=== PATIENT | male | born 1935 | race Caucasian/White ===

== ENCOUNTER → 2021-01-16 | Outpatient (REF) | LOC: ZCOL.LAB 07:56 | DX: K57.20 Diverticulitis of large intestine with perforation and abscess without bleeding (principal); D70.9 Neutropenia, unspecified ==

== ENCOUNTER → 2021-01-17 | Outpatient (REF) | LOC: ZCOL.LAB 08:40 | DX: K57.20 Diverticulitis of large intestine with perforation and abscess without bleeding (principal); D70.9 Neutropenia, unspecified ==

== ENCOUNTER 2022-01-04 19:24 | Inpatient (IN) | payer MEDICARE, BC ==
[~2022-01-04] VITALS: Ht 172.7 cm; Wt 75.7 kg
[2022-01-04] VITALS (69 sets, daily range): BP systolic 74–103; BP diastolic 38–58; PULSE 93–107; TEMP 98.8; O2SAT 85–100
[2022-01-04 19:49] LABS: HEMATOCRIT 42.9 % (42.0-52.0); HEMOGLOBIN 14.1 g/dl (13.5-18.0); MEAN CELL VOLUME 100 fl (80.0-100.0); MEAN CORPUSCULAR HEMOGLOBIN 33 pg (27-31); MEAN CORPUSCULAR HGB CONC 33 g/dl (33.0-37.0); MEAN PLATELET VOLUME 10.6 fl (7.4-10.4); PLATELET COUNT 150 K/mm3 (130-400); RED BLOOD COUNT 4.29 M/mm3 (4.20-5.60); REDCELL DISTRIBUTION WIDTH-CV 16.2 % (11.5-14.5)
[2022-01-04 19:58] LABS: INR 1.3 (0.8-3.0); PROTHROMBIN TIME 15.3 SECONDS (9.7-12.8)
[2022-01-04 20:10] LABS: ANISOCYTOSIS 1+; BAND 40 % (0-10); LYMPHOCYTE 4 % (20.0-51.0); METAMYELOCYTE 1 % (0-0); NEUTROPHILS 52 % (42.0-75.2); PLATELET ESTIMATE NORMAL (NORMAL)
[2022-01-04 20:15] LABS: ALBUMIN 3.3 gm/dL (3.4-4.8); BILIRUBIN,TOTAL 1.6 mg/dL (0.2-1.2); CALCIUM 9.2 mg/dL (8.4-10.2); CREATININE, serum 4.04 mg/dL (0.72-1.25); POTASSIUM 5.2 mmol/L (3.5-4.5); TOTAL PROTEIN 6.4 gm/dL (6.2-8.1)
[2022-01-04 20:17] LABS: C-REACTIVE PROTEIN 32.27 mg/dL (0.00-0.50); TROPONIN-I 0.311 ng/mL (0.00-0.033)
[2022-01-05] VITALS (1403 sets, daily range): BP systolic 69–120; BP diastolic 48–75; PULSE 76–101; TEMP 98.1–99; O2SAT 75–100
[2022-01-05] MEDS ORDERED: CLEOCIN HCL300 MG PO (00:44)
[2022-01-05] MEDS ORDERED: BACTROBAN22 TOP (00:45)
[2022-01-05] MEDS ORDERED: FLOMAX 0.40.4 MG/CAP PO (00:45)
[2022-01-05] MEDS ORDERED: EFFEXOR XR37.5 MG/CA PO (00:45)
[2022-01-05] MEDS ORDERED: METHOTREXA2.5 MG/TAB PO (00:46)
[2022-01-05] MEDS ORDERED: PRAVACHOL 40MG40 MG PO (00:47)
[2022-01-05] MEDS ORDERED: PROSCAR 5MG5 MG PO (00:47)
--- NOTE | 2022-01-05 00:48 | NUR ---
patient's med list incomplete. patient's will bring in a copy of his list in the morning--the patient states that he knows there are several medications missing, but he is unsure what they are
--- NOTE | 2022-01-05 01:44 | NUR ---
LEVOPHED TITRATED OUTSIDE OF ORDERED PARAMETERS (TITRATED BY 0.03) PATIENT SENSITIVE TO CHANGES. WILI SANDY.
--- NOTE | 2022-01-05 01:50 | NUR ---
LEVO TITRATED TO 0.3MCG/KG/MIN, PROVIDER AWARE OF TITRATION OUTSIDE OF ORDERED PARAMETERS
[2022-01-05 05:20] LABS: HEMOGLOBIN 12.4 g/dl (13.5-18.0); MEAN CELL VOLUME 98 fl (80.0-100.0); MEAN CORPUSCULAR HEMOGLOBIN 33 pg (27-31); MEAN CORPUSCULAR HGB CONC 34 g/dl (33.0-37.0); MEAN PLATELET VOLUME 10.5 fl (7.4-10.4); PLATELET COUNT 140 K/mm3 (130-400); RED BLOOD COUNT 3.76 M/mm3 (4.20-5.60); REDCELL DISTRIBUTION WIDTH-CV 16.2 % (11.5-14.5)
[2022-01-05 05:38] LABS: CALCIUM 8.3 mg/dL (8.4-10.2); CREATININE, serum 2.98 mg/dL (0.72-1.25); MAGNESIUM 1.7 mg/dL (1.6-2.6); POTASSIUM 4.1 mmol/L (3.5-4.5)
[2022-01-05 05:51] LABS: BAND 34 % (0-10); LYMPHOCYTE 3 % (20.0-51.0); NEUTROPHILS 60 % (42.0-75.2)
[2022-01-05 05:52] LABS: ANISOCYTOSIS 1+; PLATELET ESTIMATE NORMAL (NORMAL)
--- NOTE | 2022-01-05 09:04 | NUR ---
REPORT RECEIVED FROM KAVITHA HERRERA; PATIENT CURRENTLY SLEEPING AND VITAL SIGNS ARE ALL WITHIN NORMAL LIMITS. LEVOPHED AND NS ARE BOTH RUNNING TO THE RIGHT IJ. PATIENT HAS A COLOSTOMY BAG THAT HE MANAGES HIMSELF.
--- NOTE | 2022-01-05 10:00 | NUR ---
Initial visit; Patient thanked sales and management trainee for looking in on him and offering God's blessings. Patient was receptive to having Audit Lead keep him in her prayers.
--- NOTE | 2022-01-05 10:28 | NUR ---
breast worker met with patient to complete intake. Patient reports that he lives at home with his Opal ([phone]). He reports that he is independent with his ADL's and utilizes a walker to assist with mobility. Patient has no home oxygen needs. PCP is and he utilizes [facility] in [place] for prescriptions. Patient states that he does have a DPOA-HC established listing his Opal as his first agent and his daughter Lupe as his secondary agent.
[2022-01-05] MEDS ORDERED: ZYLOPRIM 300MG300 MG PO (11:14)
[2022-01-05] MEDS ORDERED: DULCOLAX STOOL100 MG PO (11:17)
[2022-01-05] MEDS ORDERED: PREDNISONE 5MG5 MG PO (11:20)
[2022-01-05] MEDS ORDERED: ASPIRIN 81M81 MG/TA2 PO (11:22)
[2022-01-05] MEDS ORDERED: LUTEIN20 M1 PO (11:24)
[2022-01-05] MEDS ORDERED: GLUCOSAMINE/CHO1 CA5 PO (11:25)
[2022-01-05] MEDS ORDERED: CENTRUM1 TA1 PO (11:26)
--- NOTE | 2022-01-05 19:07 | NUR ---
PATIENT ADMITED TO ICU 01/04/22 [id number].
--- NOTE | 2022-01-05 20:34 | NUR ---
Assessment complete and charted. Patient resting in bed. Denies needs at this time. Call light reach.
[2022-01-06] VITALS (1244 sets, daily range): BP systolic 94–115; BP diastolic 49–65; PULSE 61–86; TEMP 97.7–98.3; O2SAT 69–100
[2022-01-06 05:50] LABS: HEMOGLOBIN 11.2 g/dl (13.5-18.0); MEAN CELL VOLUME 102 fl (80.0-100.0); MEAN CORPUSCULAR HEMOGLOBIN 33 pg (27-31); MEAN CORPUSCULAR HGB CONC 33 g/dl (33.0-37.0); MEAN PLATELET VOLUME 11.2 fl (7.4-10.4); PLATELET COUNT 92 K/mm3 (130-400); RED BLOOD COUNT 3.39 M/mm3 (4.20-5.60); REDCELL DISTRIBUTION WIDTH-CV 16.1 % (11.5-14.5)
[2022-01-06 06:02] LABS: HEMATOCRIT 34.5 % (42.0-52.0)
[2022-01-06 06:10] LABS: CALCIUM 8.5 mg/dL (8.4-10.2); CREATININE, serum 1.8 mg/dL (0.72-1.25); POTASSIUM 3.9 mmol/L (3.5-4.5)
[2022-01-06 06:28] LABS: ANISOCYTOSIS 1+; BAND 9 % (0-10); LYMPHOCYTE 2 % (20.0-51.0); NEUTROPHILS 85 % (42.0-75.2); PLATELET ESTIMATE NORMAL (NORMAL)
--- NOTE | 2022-01-06 07:00 | NUR ---
PT RESTING IN BED. VSS. PT ON SMALL DOSE LEVO. PT DENIES NEEDS AT THIS TIME. CALL LIGHT WITHIN REACH.
--- NOTE | 2022-01-06 07:17 | NUR ---
Report given to KAVITHA De La Paz
--- NOTE | 2022-01-06 11:42 | NUR ---
MELITON LANGE WITH NOTIFIED OF TROPONIN. OK TO NOT CALL ON CRITICAL TROP IF TRENDING DOWN.
--- NOTE | 2022-01-06 13:45 | NUR ---
Pt states he is seeing pictures on the caballero and ceilings that he knows are not there. Pt stated he had hallucinations when he was hospitalized in September of last year. on unit and notified. Orders received.
--- NOTE | 2022-01-06 19:55 | NUR ---
Assessment complete and charted. Patient alert and orientated. Denies needs a this time. Call light in reach.
--- NOTE | 2022-01-06 22:28 | NUR ---
Patient transferred to floor. Report given to KAVITHA Acosta
--- NOTE | 2022-01-06 22:51 | NUR ---
Patient arrived to medical floor from ICU. Denies having pain and discomfort. Alert and oriented x 4, but does state that he has been seeing things in the ceilings. Patient is aware that he is hallucinating. ICU reported he had been having this in ICU as well. High fall risk precautions are in place. TLC to right IJ. Peripheral INT to right and left ACs. Denies SOB and dyspnea at rest, but does report he gets SOB with exertion. LS CTA. On oxygen at 2 L/min via NC, reported he only wears it at night. HRR. DU said telemetry did not need to be continued on medical floor. BSAx4. Colostomy emptied, 275 mls output. Patient using bedside urinal, urine clear and yellow. Patient continues on IV fluids per orders, as well as ABX. Voices no questions, needs, or concerns at this time. In bed with call light within reach.
[2022-01-07] VITALS (7 sets, daily range): BP systolic 95–152; BP diastolic 47–71; PULSE 54–95; TEMP 97.5–98.3
--- NOTE | 2022-01-07 06:15 | NUR ---
Patient has denied pain and discomfort. Continues on IV fluids, ABX, and steroids per orders. Labs obtained through central line per protocol. Voices no questions, needs, or concerns at this time. In bed with call light within reach. Bed alarm on.
[2022-01-07 08:11] LABS: BASO % 0.3 % (0.0-2.0); GRAN # 5.4 K/mm3 (1.4-6.5); HEMOGLOBIN 10.1 g/dl (13.5-18.0); LYMPH # 0.2 K/mm3 (1.2-3.4); LYMPH % 3.1 % (20.0-51.0); MEAN CELL VOLUME 102 fl (80.0-100.0); MEAN CORPUSCULAR HEMOGLOBIN 33 pg (27-31); MEAN CORPUSCULAR HGB CONC 32 g/dl (33.0-37.0); MEAN PLATELET VOLUME 11.8 fl (7.4-10.4); MONO # 0.5 K/mm3 (0.1-0.6); MONO % 8.3 % (1.7-9.3); PLATELET COUNT 80 K/mm3 (130-400); REDCELL DISTRIBUTION WIDTH-CV 16.4 % (11.5-14.5)
[2022-01-07 08:15] LABS: HEMATOCRIT 31.6 % (42.0-52.0)
[2022-01-07 08:20] LABS: CALCIUM 8.5 mg/dL (8.4-10.2); CREATININE, serum 1.26 mg/dL (0.72-1.25); POTASSIUM 3.6 mmol/L (3.5-4.5)
--- NOTE | 2022-01-07 09:12 | NUR ---
Initial visit; Patient thanked Color Blender for looking in on him and offering God's blessings.
--- NOTE | 2022-01-07 15:24 | NUR ---
Airplane Captain attended clinical rounds with the team and patient may discharge home tomorrow. JE met with patient to review discharge plan. JE discussed Home Health services with patient who advised he was not interested and wants to just continue his home exercise plan. SW presented and reviewed IM form with patient who verbalized understanding and provided signature. SW verbalized understanding of patient rights, however kept referring to "little hairs" on the paper, which were not there. JE placed form in chart and provided copy to patient. JE contacted patient's , Opal to review discharge plan. Opal will talk with patient Home Health and follow up with JE. Opal also requested a call from Hospitalist as she had questions about patient's hallucenations. JE provided this request to DU Alberto.
[2022-01-07] MEDS ORDERED: ZESTRIL2.5 MG PO (16:22)
[2022-01-07] MEDS ORDERED: JARDIANCE10 PO (16:23)
[2022-01-07] MEDS ORDERED: PLAVIX 75MG TAB75 MG PO (16:24)
--- NOTE | 2022-01-07 19:20 | NUR ---
patient orient and alert with hallucination during the day, tolarated all his meds and diet, denies any complaints.
--- NOTE | 2022-01-07 22:30 | NUR ---
Patient assessed around 2100. Alert and oriented, continues to have hallucinations, but is aware of these "visions" not being real. Denies pain and discomfort. TLC to right IJ. Continues on IV Steroids per orders. Continues to report SOB and dyspnea with exertion. Put on oxygen at 2 L/min via NC. LS CTA in upper lobes, diminished in lower. HRR. BSA x 4. Colostomy emptied. No edema. Voices no questions, needs, or concerns at this time. In bed with call light within reach. Bed alarm on.
[2022-01-08 07:08] LABS: GRAN # 3.3 K/mm3 (1.4-6.5); GRAN % 82.8 % (42.2-75.2); HEMOGLOBIN 10.3 g/dl (13.5-18.0); LYMPH # 0.2 K/mm3 (1.2-3.4); LYMPH % 4.8 % (20.0-51.0); MEAN CELL VOLUME 105 fl (80.0-100.0); MEAN CORPUSCULAR HEMOGLOBIN 33 pg (27-31); MEAN CORPUSCULAR HGB CONC 31 g/dl (33.0-37.0); MEAN PLATELET VOLUME 12.1 fl (7.4-10.4); MONO # 0.4 K/mm3 (0.1-0.6); MONO % 11.1 % (1.7-9.3); PLATELET COUNT 88 K/mm3 (130-400); RED BLOOD COUNT 3.14 M/mm3 (4.20-5.60); REDCELL DISTRIBUTION WIDTH-CV 16.6 % (11.5-14.5)
[2022-01-08 07:19] LABS: CREATININE, serum 1.36 mg/dL (0.72-1.25); POTASSIUM 3.8 mmol/L (3.5-4.5)
[2022-01-08 07:29] VITALS: BP 113/60; PULSE 48; TEMP 97.9
[2022-01-08 11:49] VITALS: BP 119/61; BP 173/53; PULSE 52; PULSE 72; TEMP 97.5; TEMP 98.3
[2022-01-08 11:50] LABS: CREATININE, serum 1.3 mg/dL (0.72-1.25); POTASSIUM 3.7 mmol/L (3.5-4.5)
--- NOTE | 2022-01-08 12:32 | NUR ---
Shift assessment preformed. Scheduled medications given. Dyspnea upon exertion noted. Patient's IJ flushes with good blood return. +3 edema noted in patient's left arm. Wedding ring noted to be constricting blood flow to rest of hand. Wedding band and removed and placed in patient's belongings. Provider aware. Patient continues to have hallucinations, but is aware of them not being real. Patient denies any further pain, discomfort, SOA, or further needs at this time. Call light in reach. Fall precautions in place.
--- NOTE | 2022-01-08 15:28 | NUR ---
Hypertrichologist contacted patient's , Opal to follow up on Home Health. Opal would like HH services set up so JE reviewed Medicare.gov list of HH agencies that serve [place] and Opal selected [facility] . JE contacted [facility] and faxed referral.
[2022-01-08 15:46] VITALS: BP 123/61; PULSE 49; TEMP 98.1
[2022-01-08 18:17] LABS: CALCIUM 8.9 mg/dL (8.4-10.2); CREATININE, serum 1.26 mg/dL (0.72-1.25); POTASSIUM 3.7 mmol/L (3.5-4.5)
--- NOTE | 2022-01-08 18:58 | NUR ---
Patient has had an ok day. VSS. Patient A&O. D5W gtt started per orders. Patient currently requiring 2L of O2 via nasal cannula. Patient denies any pain, discomfort, SOA, or further needs at this time. Call light in reach. Fall precautions in place.
--- NOTE | 2022-01-08 20:30 | NUR ---
Initial shift assessment done- VSS, left arm red/edema- improving-- pt states much better, Hopes to go home tomorrow, IV fluids of D5w at 30cc/hr, checking sodium levels every 4 hrs during the night- alert/oriented
[2022-01-08 20:40] VITALS: BP 119/53; PULSE 52; TEMP 97.4
[2022-01-08 21:38] LABS: CALCIUM 9.2 mg/dL (8.4-10.2); CREATININE, serum 1.28 mg/dL (0.72-1.25); POTASSIUM 3.6 mmol/L (3.5-4.5)
--- NOTE | 2022-01-08 22:45 | NUR ---
Fernanda notified of Sodium level of 148, D5W IV fluids increased to 50cc/hr at this time
[2022-01-09] VITALS (7 sets, daily range): BP systolic 111–146; BP diastolic 48–66; PULSE 51–66; TEMP 97.4–98.5
[2022-01-09 01:57] LABS: CREATININE, serum 1.29 mg/dL (0.72-1.25); POTASSIUM 3.7 mmol/L (3.5-4.5)
--- NOTE | 2022-01-09 05:19 | NUR ---
Quiet night- Most recent sodium level 146- [facility] DIXON aware- D5W remains at 50cc/hr, o2 sats 96% on 2L/nc, slept fair
[2022-01-09 07:27] LABS: HEMOGLOBIN 10.4 g/dl (13.5-18.0); MEAN CELL VOLUME 101 fl (80.0-100.0); MEAN CORPUSCULAR HEMOGLOBIN 32 pg (27-31); MEAN CORPUSCULAR HGB CONC 32 g/dl (33.0-37.0); MEAN PLATELET VOLUME 11.2 fl (7.4-10.4); PLATELET COUNT 113 K/mm3 (130-400); RED BLOOD COUNT 3.22 M/mm3 (4.20-5.60); REDCELL DISTRIBUTION WIDTH-CV 16.4 % (11.5-14.5)
[2022-01-09 07:35] LABS: HEMATOCRIT 32.5 % (42.0-52.0)
[2022-01-09 07:57] LABS: CALCIUM 9.1 mg/dL (8.4-10.2); CREATININE, serum 1.26 mg/dL (0.72-1.25); POTASSIUM 3.5 mmol/L (3.5-4.5)
[2022-01-09 08:49] LABS: BAND 3 % (0-10); EOSINOPHIL 4 % (0-4); LYMPHOCYTE 17 % (20.0-51.0); NEUTROPHILS 68 % (42.0-75.2); PLATELET ESTIMATE DECREASED (NORMAL)
[2022-01-09] MEDS ORDERED: LIPITOR 40MG TA40 MG PO (09:31)
[2022-01-09] MEDS ORDERED: OXYGEN NASAL.CANN (10:22)
--- NOTE | 2022-01-09 15:23 | NUR ---
Insurance Sales Executive contacted patient's , Opal to discuss setting up home oxygen as patient may discharge today. Opal selected [facility] as DME provider. JE contacted [facility] and faxed referral with orders. Alexander at [facility] delivered portable tanks to patient's room. JE notified by Hospitalist that patient will not discharge today. JE left message for [facility] STATON with update.
[2022-01-09 17:11] LABS: PLEURAL FLUID RBC 2000 /mm3 (0-0); PLEURAL FLUID WBC 54 /mm3
[2022-01-09 17:23] LABS: PLEURAL FLUID APPEARANCE CLEAR; PLEURAL FLUID COLOR YELLOW
--- NOTE | 2022-01-09 22:45 | NUR ---
ALERT AND OX4. DENIES SOA, CHEST PAIN OR DIZZY. NO GENERAL PAIN. CELLULITS TO LEFT ARM, OUTLINED IMPROVING. SCAB TO LT HAND. VANCO AND IV FLUIDS. HEP VTE. POSSIBLE DC TOMORROW. THORA ON RT OF 600 OFF AND FEELING BETTER. POC DISCUSSED. CALL LIGHT WI REACH. COLOSTOMY W LITTLE BIT OF STOOL, INTACT. URINAL EMPTIED.
[2022-01-10 04:14] VITALS: BP 127/52; PULSE 66; TEMP 97.9
[2022-01-10 07:31] VITALS: BP 120/44; PULSE 59; TEMP 97.6
[2022-01-10 10:51] LABS: CALCIUM 9.4 mg/dL (8.4-10.2); CREATININE, serum 1.26 mg/dL (0.72-1.25); POTASSIUM 3.1 mmol/L (3.5-4.5)
--- NOTE | 2022-01-10 10:58 | NUR ---
PATEINTS LEFT ARM REDNESS AND BLISTERS INCREASED FROM YESTERDAY, DR GUPTA NOTIFIED AND CALL PLACED TO ID DOCTOR KEAGAN, NO ANSWER, VOICEMAIL WAS LEFT.
[2022-01-10 11:36] VITALS: BP 143/69; PULSE 73; TEMP 98.9
[2022-01-10 16:20] VITALS: BP 130/62; PULSE 81; TEMP 98.4
[2022-01-10 20:33] VITALS: BP 117/50; PULSE 81; TEMP 98.2
--- NOTE | 2022-01-10 22:43 | NUR ---
ALERT AND OX3. DENIES SOA, CHEST PAIN OR DIZZY; TRIPLE IJ TO RT NECK- DSG CHANGED TODAY. PM MEDS GIVEN. LT ARM CELLULTIS, OFFLOAD W PILLOW. BLISTERS IN TACT, WILL GET WOUND CULTURE WHEN OPENS. THORA TOMORROW. POC DISCUSSED. CALL LIGHT WI REACH.
[2022-01-11 00:15] VITALS: BP 117/55; PULSE 76; TEMP 98.5
[2022-01-11 04:13] VITALS: BP 104/52; PULSE 72; TEMP 98.1
--- NOTE | 2022-01-11 06:13 | NUR ---
NOTED PT TO HAVE RED SMALL RAISED SPOTS ON BACK THAT DIDNT NOTICE BEFORE. DENIES ITCHY. WILL PASS ONTO HAVE DOCTOR LOOK AT DURING ROUNDS THIS AM. PT ARM HAS BLISTER BUT NOT OPEN ON LT ARM.
[2022-01-11 07:08] LABS: ALBUMIN 2.3 gm/dL (3.4-4.8); CREATININE, serum 1.25 mg/dL (0.72-1.25); PHOSPHOROUS 3.9 mg/dL (2.3-4.7); POTASSIUM 3.4 mmol/L (3.5-4.5)
[2022-01-11 07:15] VITALS: BP 122/56; PULSE 71; TEMP 98.2
[2022-01-11 07:40] LABS: HEMATOCRIT 39.7 % (42.0-52.0); MEAN CELL VOLUME 100 fl (80.0-100.0); MEAN CORPUSCULAR HEMOGLOBIN 32 pg (27-31); MEAN CORPUSCULAR HGB CONC 32 g/dl (33.0-37.0); MEAN PLATELET VOLUME 11.6 fl (7.4-10.4); PLATELET COUNT 185 K/mm3 (130-400); RED BLOOD COUNT 3.97 M/mm3 (4.20-5.60); REDCELL DISTRIBUTION WIDTH-CV 15.9 % (11.5-14.5)
[2022-01-11 07:48] LABS: HEMOGLOBIN 12.8 g/dl (13.5-18.0)
[2022-01-11 08:30] LABS: BAND 1 % (0-10); EOSINOPHIL 3 % (0-4); LYMPHOCYTE 15 % (20.0-51.0); NEUTROPHILS 75 % (42.0-75.2)
[2022-01-11 08:31] LABS: ANISOCYTOSIS 1+; HYPOCHROMIA 1+; PLATELET ESTIMATE NORMAL (NORMAL)
[2022-01-11 11:32] VITALS: BP 107/64; PULSE 81; TEMP 98.4
[2022-01-11 19:23] LABS: BUDDING YEAST Present (NOT PRESENT); MUCOUS Present (NOT PRESENT); PH 9 (5-8); SQUAMOUS EPITHELIAL 0-2 /hpf (0-10); URINE APPEARANCE Clear (CLEAR/HAZY); URINE BACTERIA None Seen /hpf (NONE SEEN); URINE BILIRUBIN Negative (NEGATIVE); URINE BLOOD Negative (NEGATIVE); URINE COLOR Straw (YELLOW); URINE GLUCOSE 1+ (NEGATIVE); URINE KETONE Negative (NEGATIVE); URINE LEUKOCYTE ESTERASE Negative (NEGATIVE); URINE NITRATE Negative (NEGATIVE); URINE PROTEIN(semi-quant) Negative (NEGATIVE); URINE UROBILINOGEN Negative (NEGATIVE); URINE WBC 0-2 /hpf (0-2)
[2022-01-11 19:42] LABS: COLLECTION METHOD CLEAN CATCH
[2022-01-11 20:10] VITALS: BP 106/56; BP 112/48; PULSE 85; TEMP 99
[2022-01-12 00:20] VITALS: BP 98/51; PULSE 83; TEMP 98.4
[2022-01-12 04:06] VITALS: BP 107/46; PULSE 78; TEMP 98.1
[2022-01-12 07:14] VITALS: BP 117/54; PULSE 78; TEMP 98
[2022-01-12 07:23] LABS: HEMATOCRIT 39.9 % (42.0-52.0); HEMOGLOBIN 12.7 g/dl (13.5-18.0); MEAN CELL VOLUME 101 fl (80.0-100.0); MEAN CORPUSCULAR HEMOGLOBIN 32 pg (27-31); MEAN CORPUSCULAR HGB CONC 32 g/dl (33.0-37.0); MEAN PLATELET VOLUME 11.8 fl (7.4-10.4); PLATELET COUNT 217 K/mm3 (130-400); RED BLOOD COUNT 3.97 M/mm3 (4.20-5.60); REDCELL DISTRIBUTION WIDTH-CV 15.9 % (11.5-14.5)
[2022-01-12 07:43] LABS: ALBUMIN 2.4 gm/dL (3.4-4.8); CALCIUM 9.2 mg/dL (8.4-10.2); CREATININE, serum 1.31 mg/dL (0.72-1.25); MAGNESIUM 2.2 mg/dL (1.6-2.6); PHOSPHOROUS 3.7 mg/dL (2.3-4.7); POTASSIUM 3.9 mmol/L (3.5-4.5)
[2022-01-12 09:04] LABS: BAND 12 % (0-10); EOSINOPHIL 3 % (0-4); LYMPHOCYTE 11 % (20.0-51.0); METAMYELOCYTE 1 % (0-0); NEUTROPHILS 66 % (42.0-75.2); PLATELET ESTIMATE NORMAL (NORMAL)
--- NOTE | 2022-01-12 09:48 | NUR ---
Patient prescribed hazardous medication: methotrexate, which requires precautions when handling urine and feces for 3 days after last administration. Last noted dose was 6/10 per med rec so precautions have lapsed but notified care team that if reactivated, patient will need to be under precautions again.
[2022-01-12] MEDS ORDERED: PREDNISONE20 MG PO (09:52)
[2022-01-12 11:15] VITALS: BP 109/50; PULSE 76; TEMP 97.9
[2022-01-12] MEDS ORDERED: DOXYCYCLINE HY100 MG PO (14:27)
[2022-01-12] MEDS ORDERED: ZOVIRAX400 MG PO (14:39)
[2022-01-12] MEDS ORDERED: PREDNISONE 5MG5 MG PO (14:42)
--- NOTE | 2022-01-12 14:49 | NUR ---
Patient to discharge home today with [facility]. JE collaborated with RT who completed another exercise oximetry and patient no longer requires home oxygen. SW updated [facility] and they will come pickers material handlers patient's equipment. JE contacted [facility] and faxed discharge orders. JE attempted to contact patient's , Opal and left a message. Discharge Plan: Home with [facility]
[2022-01-12 18:40] LABS: HEPATITIS C VIRUS ANTIBODY Negative (Negative); HIV 1 and 2 ANTIBODY SCRN-SO Negative (Negative)
== END 2022-01-12 15:30 | disposition home health service (06) | DRG 871 ==
LOC: COL.ER 19:24 → ICU 22:25 → MEDICAL 01-06 22:22
PROVIDERS: Emergency Medicine; Internal Medicine; Physician Assistant; Student in an Organized Health Care Education/Training Program; ADMIT Internal Medicine
PROC: 02HV33Z Insertion of Infusion Device into Superior Vena Cava, Percutaneous Approach (ICD-10-PCS; 2022-01-04)
PROC: 0W993ZX Drainage of Right Pleural Cavity, Percutaneous Approach, Diagnostic (ICD-10-PCS; principal; 2022-01-09)
DX: A41.9 Sepsis, unspecified organism (principal); J96.01 Acute respiratory failure with hypoxia; R65.21 Severe sepsis with septic shock; N17.9 Acute kidney failure, unspecified; D84.9 Immunodeficiency, unspecified; E87.0 Hyperosmolality and hypernatremia; I24.8 Other forms of acute ischemic heart disease; L03.114 Cellulitis of left upper limb; C95.90 Leukemia, unspecified not having achieved remission; E87.1 Hypo-osmolality and hyponatremia; I82.612 Acute embolism and thrombosis of superficial veins of left upper extremity; J91.8 Pleural effusion in other conditions classified elsewhere; B37.49 Other urogenital candidiasis; I50.30 Unspecified diastolic (congestive) heart failure; I95.9 Hypotension, unspecified; E78.5 Hyperlipidemia, unspecified; N40.0 Benign prostatic hyperplasia without lower urinary tract symptoms; F32.A Depression, unspecified; E86.0 Dehydration; N28.1 Cyst of kidney, acquired; D63.0 Anemia in neoplastic disease; Z20.822 Contact with and (suspected) exposure to COVID-19; I11.0 Hypertensive heart disease with heart failure; D69.6 Thrombocytopenia, unspecified; L27.0 Generalized skin eruption due to drugs and medicaments taken internally; E87.6 Hypokalemia; B00.1 Herpesviral vesicular dermatitis; Z87.442 Personal history of urinary calculi; Z79.82 Long term (current) use of aspirin
CPT/HCPCS: 99223-AI; 99232-AI; 99233-AI; 99239; A9270; C9113; J0696; J1644; J1720; J1815; J1940; J2185; J2405; J2543; J3370; J7030; J7040; J7050; J7060; J7070; J7120; Q9967

== ENCOUNTER 2022-06-06 10:50 | Inpatient (IN) | payer MEDICARE, BC ==
[~2022-06-06] VITALS: Ht 172.7 cm; Wt 81.1 kg
[~2022-06-06 10:50] MED LIST: ASPIRIN 81M81 MG/TA2 PO; BACTROBAN22 TOP; CENTRUM1 TA1 PO; CLEOCIN HCL300 MG PO; DOXYCYCLINE HY100 MG PO; DULCOLAX STOOL100 MG PO; EFFEXOR XR37.5 MG/CA PO; FLOMAX 0.40.4 MG/CAP PO; GLUCOSAMINE/CHO1 CA5 PO; JARDIANCE10 PO; LIPITOR 40MG TA40 MG PO; LUTEIN20 M1 PO; METHOTREXA2.5 MG/TAB PO; METHOTREXATE SQ; NEURONTIN100 MG/CAP PO; OXYGEN NASAL.CANN; PLAVIX 75MG TAB75 MG PO; PRAVACHOL 40MG40 MG PO; PREDNISONE 5MG5 MG PO; PREDNISONE20 MG PO; PROSCAR 5MG5 MG PO; VALTREX1 GM PO; ZESTRIL2.5 MG PO; ZOVIRAX400 MG PO; ZYLOPRIM 300MG300 MG PO
[2022-06-06 12:08] LABS: BASO % 0.5 % (0.0-2.0); EOS % 0.9 % (0.0-4.0); GRAN # 1.9 K/mm3 (1.4-6.5); GRAN % 87.6 % (42.2-75.2); HEMOGLOBIN 11.1 g/dl (13.5-18.0); LYMPH # 0.1 K/mm3 (1.2-3.4); LYMPH % 4.1 % (20.0-51.0); MEAN CELL VOLUME 100 fl (80.0-100.0); MEAN CORPUSCULAR HEMOGLOBIN 33 pg (27-31); MEAN CORPUSCULAR HGB CONC 33 g/dl (33.0-37.0); MONO # 0.1 K/mm3 (0.1-0.6); MONO % 5.5 % (1.7-9.3); PLATELET COUNT 74 K/mm3 (130-400); RED BLOOD COUNT 3.34 M/mm3 (4.20-5.60); REDCELL DISTRIBUTION WIDTH-CV 16.4 % (11.5-14.5)
[2022-06-06 12:10] LABS: HEMATOCRIT 33.4 % (42.0-52.0)
[2022-06-06 12:22] LABS: ALBUMIN 2.6 gm/dL (3.4-4.8); BILIRUBIN,TOTAL 0.9 mg/dL (0.2-1.2); CALCIUM 8.1 mg/dL (8.4-10.2); CREATININE, serum 0.99 mg/dL (0.72-1.25); POTASSIUM 3.7 mmol/L (3.5-4.5); TOTAL PROTEIN 5.3 gm/dL (6.2-8.1)
[2022-06-06 12:31] LABS: TROPONIN-I 0.037 ng/mL (0.00-0.033)
--- NOTE | 2022-06-06 14:09 | NUR ---
REPORT RCVD FROM KAVITHA MORENO IN ER. SHE STATES THE PATIENT DOES NOT HAVE AN IV, WILL ATTEMPT TO START ON ARRIVAL. THE PATIENT WILL BE ADMITTED WITH TELEMETRY, AND AN ORTHO CONSULT.
[2022-06-06 14:43] VITALS: BP 150/66; PULSE 74; TEMP 98.4
[2022-06-06] MEDS ORDERED: CEPHALEXIN500 M1 PO (15:11)
--- NOTE | 2022-06-06 15:30 | NUR ---
THE PATIENT ARRIVED FROM ER. THERE IS A SPLINT ON THE LEFT LEG FROM HIS FALL AT HOME. PER THE PATIENT'S FAMILY THE PATIENT DOES NOT RECALL THE EVENTS OF THE FALL. HE DID HIT HIS HEAD AND THERE IS A REDDENED SPOT ON THE LEFT OCCIPITAL OF THE PATIENTS HEAD. THE PATIENT RECENTLY HAD A PACEMAKER PLACED BY DR. CARDENAS ON WEDNESDAY. THE SITE DOES HAVE A HEMATOMA, ICE HAS BEEN PLACED ON THE SITE. DR. JAUREGUI IS AT BEDSIDE TO ASSESS. PACER INTERROGATION COMPLETED IN ED PER REPORT FROM KAVITHA MORENO. ORTHO CONSULT CALLED, DR. CHERY IS AWARE AND WILL SEE HIM IN THE MORNING. THE PATIENT HAS HIS AND DAUGHTER AT BEDSIDE. THEY STATED THAT HIS MEDICATIONS ARE EXACTLY WHAT THEY WERE WHEN HE LEFT FROM THE ICU. NO OTHER CONCERNS AT THIS TIME.
[2022-06-06 15:40] VITALS: BP 148/78; PULSE 77; TEMP 97.9
--- NOTE | 2022-06-06 15:40 | NUR ---
COLOSTOMY NOTED. NO CONCERNS WITH THAT, THE PATIENT STATES HE MANAGES IT HIMSELF.
--- NOTE | 2022-06-06 17:30 | NUR ---
ORTHO AT BEDSIDE. DR. CHERY STATES THAT IT APPEARS THERE COULD BE A POTENTIAL FRACTURE HIGHER UP AND WANTED TO ORDER A TIB/FIB XRAY. ORDER PLACED, AND SHOULD BE DONE TONIGHT. THE PATIENT IS VERY DROWSY AND IS SLEEPING AT THIS TIME.
--- NOTE | 2022-06-06 18:35 | NUR ---
PT SLEEPING AT THIS TIME. REFUSING TO EAT DINNER. WILL LEAVE IN HIS ROOM IN THE EVENT THE PATIENT WOULD LIKE IT. THE TIB/FIB XRAY HAS BEEN ORDERED AND FAMILY HAS BEEN NOTIFIED OF THE UPDATE.
[2022-06-06 20:43] VITALS: BP 123/48; PULSE 93; TEMP 99.2
[2022-06-07 00:11] VITALS: BP 108/49; PULSE 83; TEMP 97.6
[2022-06-07 04:28] VITALS: BP 120/78; PULSE 89; TEMP 97.4
[2022-06-07 06:42] LABS: MEAN CELL VOLUME 97 fl (80.0-100.0); MEAN CORPUSCULAR HGB CONC 33 g/dl (33.0-37.0); MEAN PLATELET VOLUME 11.4 fl (7.4-10.4); PLATELET COUNT 76 K/mm3 (130-400); RED BLOOD COUNT 2.98 M/mm3 (4.20-5.60); REDCELL DISTRIBUTION WIDTH-CV 16.1 % (11.5-14.5)
[2022-06-07 06:43] LABS: HEMOGLOBIN 9.6 g/dl (13.5-18.0); MEAN CORPUSCULAR HEMOGLOBIN 32 pg (27-31)
[2022-06-07 07:02] LABS: ALBUMIN 2.3 gm/dL (3.4-4.8); CALCIUM 7.7 mg/dL (8.4-10.2); CREATININE, serum 0.85 mg/dL (0.72-1.25); MAGNESIUM 1.7 mg/dL (1.6-2.6); PHOSPHOROUS 1.9 mg/dL (2.3-4.7); POTASSIUM 3.3 mmol/L (3.5-4.5)
--- NOTE | 2022-06-07 07:30 | NUR ---
Patient sleeping, easily awakened with verbal command. A&Ox3. VSS. IV CDI, fluids infusing. Denies pain and discomfort. Wants to go back to sleep. Nursing staff repositioned the patient for comfort. LF leg elevated on pillow. Nurse ordered breakfast. No further needs expressed. Call light within reach. Bed alarm on
[2022-06-07 07:39] VITALS: BP 126/51; PULSE 87; TEMP 98.9
[2022-06-07 08:18] LABS: BAND 4 % (0-10); LYMPHOCYTE 10 % (20.0-51.0); NEUTROPHILS 74 % (42.0-75.2)
[2022-06-07 08:19] LABS: ANISOCYTOSIS 1+; OVALOCYTES 1+; PLATELET ESTIMATE DECREASED (NORMAL)
[2022-06-07 11:39] VITALS: BP 110/45; PULSE 80; TEMP 97.9
--- NOTE | 2022-06-07 11:47 | NUR ---
Database Administration Associate rounds: Patient recently had a pacemaker inserted. When he went home from that procedure, he fell in the bathroom and broke his leg. His called for an ambulance. Now he will need surgery to correct his leg. The physical therapist arrived during visit, but left to allow Patient his radio time sales supervisor with Database Administration Associate. Surgery is scheduled Wednesday. Patient is in a lot of pain. Prayed for Patient. Database Administration Associate notified GUM SCORING MACHINE OPERATOR at end of visit so that PT could return.
[2022-06-07 15:11] VITALS: BP 115/50; PULSE 84; TEMP 97.5
--- NOTE | 2022-06-07 17:35 | NUR ---
Patient sitting up in bed watching TV and eating dinner. A&Ox4. VSS. IV CDI, fluids infusing. Denies pain and discomfort. Colostomy intact. Family at the bedside earlier in the shift. LF leg dressing CDI. Elevated on pillow. No further needs expressed. Call light within reach
[2022-06-07 19:35] VITALS: BP 132/57; PULSE 74; TEMP 98.4
[2022-06-08] VITALS (7 sets, daily range): BP systolic 107–144; BP diastolic 39–65; PULSE 72–84; TEMP 98–99.1
[2022-06-08 06:43] LABS: MEAN CELL VOLUME 99 fl (80.0-100.0); MEAN CORPUSCULAR HGB CONC 33 g/dl (33.0-37.0); MEAN PLATELET VOLUME 11.5 fl (7.4-10.4); PLATELET COUNT 78 K/mm3 (130-400); RED BLOOD COUNT 2.96 M/mm3 (4.20-5.60); REDCELL DISTRIBUTION WIDTH-CV 16.4 % (11.5-14.5)
[2022-06-08 06:45] LABS: HEMATOCRIT 29.4 % (42.0-52.0); HEMOGLOBIN 9.6 g/dl (13.5-18.0); MEAN CORPUSCULAR HEMOGLOBIN 32 pg (27-31)
[2022-06-08 07:10] LABS: ALBUMIN 2.2 gm/dL (3.4-4.8); CALCIUM 7.5 mg/dL (8.4-10.2); CREATININE, serum 0.84 mg/dL (0.72-1.25); MAGNESIUM 1.9 mg/dL (1.6-2.6); PHOSPHOROUS 1.5 mg/dL (2.3-4.7); POTASSIUM 4.2 mmol/L (3.5-4.5)
[2022-06-08 07:38] LABS: ANISOCYTOSIS 1+; BAND 6 % (0-10); LYMPHOCYTE 6 % (20.0-51.0); NEUTROPHILS 81 % (42.0-75.2)
[2022-06-08 07:41] LABS: PLATELET ESTIMATE DECREASED (NORMAL)
[2022-06-08 07:42] LABS: OVALOCYTES 1+
--- NOTE | 2022-06-08 11:00 | NUR ---
Morning medications administered per eMAR. Shift assessment completed. VSS. Telemetry on; paced. Dressing on L upper chest CDI. IV in L AC intact; no edema or redness. Colostomy in LUQ intact. Chandler wrap remains on LLE; elevated on pillow. No further requests at this time. Call light within reach.
--- NOTE | 2022-06-08 15:01 | NUR ---
SW met with the patient to discuss discharge plan. The patient lives in [place] with his , Opal. He states that his has Parkinson's and has a lot of falls, but that their daughter (Belgica Hinton, ph#[phone]) is taking care of here while he is here. He reports independence with ADLs and has canes and walkers available, if needed. The patient's PCP is Dr. Ren Mckee and he receives his medications from [facility] in . The patient does not have a DPOA-HC in EMR, but he states that he does have one completed and that it designates his . The patient has an ankle fracture and is to have surgery tomorrow. PT has already worked with the patient and recommend that he will likely need SNF before going home. SW discussed this with the patient and provided him with Medicare.gov's list of SNFs in the [facility]. The patient states that he has been to [facility] in the past. He would prefer [facility], [facility], or [facility] in [place]. JE contacted and faxed a referral to all three facilities. Awaiting screens. JE contacted the patient's daughter, Belgica, and reviewed the above with her. Belgica is in agreement to the plan. *Discharge plan: SNF. Referrals out*
[2022-06-09] VITALS (11 sets, daily range): BP systolic 115–140; BP diastolic 50–88; PULSE 60–74; TEMP 97.4–98.5
[2022-06-09 07:17] LABS: MEAN CELL VOLUME 97 fl (80.0-100.0); MEAN CORPUSCULAR HGB CONC 33 g/dl (33.0-37.0); MEAN PLATELET VOLUME 11.3 fl (7.4-10.4); PLATELET COUNT 77 K/mm3 (130-400); RED BLOOD COUNT 3.08 M/mm3 (4.20-5.60); REDCELL DISTRIBUTION WIDTH-CV 16.3 % (11.5-14.5)
[2022-06-09 07:19] LABS: HEMATOCRIT 29.9 % (42.0-52.0); HEMOGLOBIN 9.9 g/dl (13.5-18.0); MEAN CORPUSCULAR HEMOGLOBIN 32 pg (27-31)
[2022-06-09 07:23] LABS: ALBUMIN 2.2 gm/dL (3.4-4.8); CALCIUM 7.7 mg/dL (8.4-10.2); CREATININE, serum 0.8 mg/dL (0.72-1.25); MAGNESIUM 1.8 mg/dL (1.6-2.6); PHOSPHOROUS 2.8 mg/dL (2.3-4.7)
[2022-06-09 08:21] LABS: BAND 4 % (0-10); LYMPHOCYTE 15 % (20.0-51.0); NEUTROPHILS 73 % (42.0-75.2); PLATELET ESTIMATE DECREASED (NORMAL)
[2022-06-09 08:22] LABS: ANISOCYTOSIS 1+; OVALOCYTES 1+
--- NOTE | 2022-06-09 09:15 | NUR ---
Pt returned from procedure at this time. Post-op vitals in place. Pt is unable to move toes in LLE at this time. Pedal pulses noted and warm to touch. Chandler wrap and splint in place. LLE elevated on pillow.
--- NOTE | 2022-06-09 09:52 | NUR ---
Patient back up from procedure. Patient drowsy, but oriented. Right foot elevated on pillow, ice applied. Pedal pulse present. Dynamap connected for post op vitals. VSS.
--- NOTE | 2022-06-09 10:00 | NUR ---
Morning medications administered per eMAR. Shift assessment completed. Pt alert but drowsy. VSS. Pt currently on 3L per NC. Dressing in L upper chest CDI. Telemetry remains on; paced. IV in R AC intact; no edema or redness. Colostomy in LUQ intact. LLE in splint and kendra wrap with ice applied to lateral side of extremity. Strong pedal pulse noted on LLE, although pt is unable to move toes at this time; aware. LLE elevated on pillow. Post-op vitals remain in place. Incentive spirometer at bedside. No requests at this time. Call light within reach.
--- NOTE | 2022-06-09 14:25 | NUR ---
Dasha, at [facility], reports that they plan to talk to the patient's family. She states that with the patient's non-weight bearing restrictions, they would not be able to skill him for long. SW to fax updates to [facility], Katie Vallecillo, and Jarett Vallecillo.
--- NOTE | 2022-06-09 19:39 | NUR ---
Pt unable to move toes to LLE. Strong pedal pulse remains on LLE with splint and kendra wrap in place; extremity remains elevated on pillow. Pt denies having any pain at this time. Call light within reach.
[2022-06-10] VITALS (7 sets, daily range): BP systolic 88–148; BP diastolic 43–69; PULSE 59–66; TEMP 97.5–98.4
--- NOTE | 2022-06-10 03:07 | NUR ---
SHIFT NURSING ASSESSMENT COMPLETED. THE PATIENTS OSTOMY WAS EMPTIED AT THIS TIME. LEFT LOWER EXTREMITY ELEVATED ON PILLOWS AND ICE APPLIED DRESSING IS C/D/I. THE PATIENT IS STILL UNABLE TO WIGGLE HIS TOES D/T THE BLOCK THAT WAS USED DURING THE PROCEDURE. EDUCATION PROVIDED AND QUESTIONS AND CONCERNS ADDRESSED. THE PATIENT DENIED PAIN. LEFT LOWER EXTREMITY WARM TO THE TOUCH AND GOOD CAP REFILL NOTED. CALL LIGHT AND PERSONAL BELONGINS WITHIN REACH. WILL MONITOR. BED IN LOW POSITION.
[2022-06-10 07:05] LABS: ALBUMIN 2.3 gm/dL (3.4-4.8); BILIRUBIN,TOTAL 0.5 mg/dL (0.2-1.2); CALCIUM 8.1 mg/dL (8.4-10.2); CREATININE, serum 0.91 mg/dL (0.72-1.25); POTASSIUM 4.5 mmol/L (3.5-4.5); TOTAL PROTEIN 5.1 gm/dL (6.2-8.1)
[2022-06-10 07:30] LABS: MEAN CELL VOLUME 97 fl (80.0-100.0); MEAN CORPUSCULAR HGB CONC 33 g/dl (33.0-37.0); MEAN PLATELET VOLUME 11.6 fl (7.4-10.4); PLATELET COUNT 79 K/mm3 (130-400); RED BLOOD COUNT 3.01 M/mm3 (4.20-5.60)
--- NOTE | 2022-06-10 07:53 | NUR ---
Shift report received from night shift manager RN
[2022-06-10 09:24] LABS: HEMATOCRIT 29.1 % (42.0-52.0); HEMOGLOBIN 9.7 g/dl (13.5-18.0); MEAN CORPUSCULAR HEMOGLOBIN 32 pg (27-31)
--- NOTE | 2022-06-10 09:29 | NUR ---
Pt sitting up in recliner eating breakfast. LLE splint/dressing is CDI. BLE elevated on footrest. item processing clerk informed this nurse that lab called to report WBC of 1.5. Hospitalist team notified verbally. Pt. denies pain/discomfort at this time. IV site Rt. AC is not flushing well. Charge nurse notified to assist w/ finding alt. site for IV
[2022-06-10 09:37] LABS: ANISOCYTOSIS 1+; LYMPHOCYTE 6 % (20.0-51.0); NEUTROPHILS 82 % (42.0-75.2); PLATELET ESTIMATE DECREASED (NORMAL)
[2022-06-10 09:41] LABS: SCHISTOCYTES 1+
[2022-06-10] MEDS ORDERED: TESSALON P100 MG/CAP PO (10:01)
--- NOTE | 2022-06-10 10:33 | NUR ---
JE staffed with the PA. The clinical team is ready to discharge the patient today. JE updated Dasha at [facility]. Dasha reports that they are able to accept the patient, but that the earliest they would be able to take him is tomorrow, due to the patient recently having COVID. JE updated the PA. JE contacted the patient's daughter, Belgica, to update. Belgica is in agreement to the plan. JE faxed updates to [facility]. *Discharge plan: [facility]*
--- NOTE | 2022-06-10 16:36 | NUR ---
Pt sitting up in bed watching television. PRN pain medication was given approx 3 hours for hip pain that began after finishing PT. Pt. denies current pain/discomfort. Denies additional needs. Call light is in his reach
[2022-06-11] VITALS (8 sets, daily range): BP systolic 112–140; BP diastolic 47–114; PULSE 74–125; TEMP 97.7–102
[2022-06-11 07:35] LABS: BILIRUBIN,TOTAL 0.3 mg/dL (0.2-1.2); CALCIUM 6.9 mg/dL (8.4-10.2); CREATININE, serum 0.73 mg/dL (0.72-1.25); MAGNESIUM 1.6 mg/dL (1.6-2.6); POTASSIUM 3.6 mmol/L (3.5-4.5); TOTAL PROTEIN 4.3 gm/dL (6.2-8.1)
[2022-06-11 07:36] LABS: MEAN CELL VOLUME 99 fl (80.0-100.0); MEAN CORPUSCULAR HGB CONC 33 g/dl (33.0-37.0); MEAN PLATELET VOLUME 12.1 fl (7.4-10.4); PLATELET COUNT 81 K/mm3 (130-400); RED BLOOD COUNT 2.87 M/mm3 (4.20-5.60); REDCELL DISTRIBUTION WIDTH-CV 15.9 % (11.5-14.5)
[2022-06-11 07:59] LABS: HEMATOCRIT 28.5 % (42.0-52.0); HEMOGLOBIN 9.3 g/dl (13.5-18.0); MEAN CORPUSCULAR HEMOGLOBIN 32 pg (27-31)
[2022-06-11 08:06] LABS: ANISOCYTOSIS 1+; BAND 10 % (0-10); LYMPHOCYTE 9 % (20.0-51.0); NEUTROPHILS 76 % (42.0-75.2); OVALOCYTES 2+; PLATELET ESTIMATE DECREASED (NORMAL); POIKILOCYTOSIS 1+; SCHISTOCYTES 1+
--- NOTE | 2022-06-11 08:30 | NUR ---
PATIENT ASLEEP, RESTING IN BED WITH BED ALARM ON. PATIENT WOKE UP EASILY TO NAME. PATIENT WITH NO NEEDS OR COMPLAINTS AT THIS TIME. COLOSTOMY INTACT. IVF INFUSING. [facility]. WILL CONTINUE TO MONITOR.
--- NOTE | 2022-06-11 09:23 | NUR ---
The patient is to discharge today, 06/11, to [facility] for a skilled stay. Transportation was scheduled at 1100, via [facility]. JE informed the patient's RN and daughter (Belgica) of the transport time. JE met with the patient and presented and read the IM form outloud to him. The patient verbalized understanding and of agreement to discharge today. He gave SW verbal consent to sign the form on his behalf. JE provided him with a copy. No additional needs at this time.
--- NOTE | 2022-06-11 10:30 | NUR ---
PATIENTS IV AND TELE DISCONTINUED. PATIENT DRESSED, COLOSTOMY DRAINED.
--- NOTE | 2022-06-11 11:15 | NUR ---
REPORT GIVEN TO GAUDENCIO [facility] SANATORIUMAnnika SPIVEY. ALL QUESTIONS ANSWERED. INFORMED HER TRANSPORT IS HERE FOR PICKUP.
[2022-06-11] MEDS ORDERED: LOVENOX 4040 MG/0.4 SQ (11:49)
--- NOTE | 2022-06-11 12:24 | NUR ---
PATIENT ARRIVED FROM [facility]. BP STABLE, HEART RATE ELEVATED AND TEMP ELEVATED. PATIENT HAS NO COMPLAINTS, STATED HE FEELS FINE AND DOES NOT UNDERSTAND WHY HE WAS SENT BACK. MD MADE AWARE OF PATIENT ARRIVAL BACK TO HIS ROOM. IV AND TELE INITIATED. RADIOLOGY NOTIFIED OF CXR ORDER. MD AWARE. FLUID BOLUS INITATED, TYLENOL ADMIN (SEE EMAR). PATIENT RESTING IN BED AT THIS TIME WITH NO COMPLAINTS OR NEEDS. CALL LIGHT WITH IN REACH.
[2022-06-11 12:57] LABS: EOS % 0.4 % (0.0-4.0); GRAN # 4.1 K/mm3 (1.4-6.5); GRAN % 84.7 % (42.2-75.2); HEMOGLOBIN 11.2 g/dl (13.5-18.0); LYMPH # 0.3 K/mm3 (1.2-3.4); LYMPH % 6.7 % (20.0-51.0); MEAN CELL VOLUME 97 fl (80.0-100.0); MEAN CORPUSCULAR HEMOGLOBIN 32 pg (27-31); MEAN CORPUSCULAR HGB CONC 33 g/dl (33.0-37.0); MEAN PLATELET VOLUME 11.5 fl (7.4-10.4); MONO # 0.3 K/mm3 (0.1-0.6); MONO % 6.9 % (1.7-9.3); PLATELET COUNT 137 K/mm3 (130-400); RED BLOOD COUNT 3.48 M/mm3 (4.20-5.60); REDCELL DISTRIBUTION WIDTH-CV 16.1 % (11.5-14.5)
[2022-06-11 12:58] LABS: HEMATOCRIT 33.6 % (42.0-52.0)
[2022-06-11 13:07] LABS: COLLECTION METHOD CLEAN CATCH
--- NOTE | 2022-06-11 13:08 | NUR ---
PATIENTS DAUGHTER CALLED FOR UPDATE. INOFRMED HER OF PATIENT STATUS. ALL QUESTIONS ANSWERED, PATIENTS DAUGHTER SATISFIED AT THIS TIME.
[2022-06-11 13:13] LABS: ALBUMIN 2.9 gm/dL (3.4-4.8); BILIRUBIN,TOTAL 0.7 mg/dL (0.2-1.2); CALCIUM 8.8 mg/dL (8.4-10.2); CREATININE, serum 0.96 mg/dL (0.72-1.25); POTASSIUM 4.1 mmol/L (3.5-4.5); TOTAL PROTEIN 6.1 gm/dL (6.2-8.1)
[2022-06-11 13:28] LABS: URINE APPEARANCE Clear (CLEAR/HAZY); URINE BLOOD Negative (NEGATIVE); URINE COLOR Yellow (YELLOW); URINE GLUCOSE Negative (NEGATIVE); URINE KETONE Negative (NEGATIVE); URINE NITRATE Negative (NEGATIVE); URINE PROTEIN(semi-quant) TRACE (NEGATIVE); URINE UROBILINOGEN 0.2 E.U/dL (0.2-1.0)
[2022-06-11 13:30] LABS: SQUAMOUS EPITHELIAL None Seen /hpf (0-10); URINE BACTERIA None Seen /hpf (NONE SEEN); URINE RBC 0-2 /hpf (0-2)
--- NOTE | 2022-06-11 13:45 | NUR ---
PATIENT LUNG SOUNDS SHOW NO SIGN OF FLUID OVERLOAD. PATIENT ALERT AND ORIENTED. NO NEEDS OR COMPLAINTS AT THIS TIME. CALL LIGHT WITHIN REACH. WILL CONT TO MONITOR.
--- NOTE | 2022-06-11 14:35 | NUR ---
Dasha, at [facility], notified JE that upon arrival to [facility], the patient had a temp of 102.7 and they were concerend for his blood pressure. His blood pressure was 90/67. [facility] feels like he needs to be sent back out to be re-evaluated. JE notified the PA. Field Crop Farmworker was notified. The patient's discharge was canceled and the patient returned back to the hospital to be re-evaluated. JE updated the patient's Belgica reddy.
--- NOTE | 2022-06-11 16:45 | NUR ---
PORFIRIO FROM [facility] [employer] CALLED, ASKED PATIENTS SYMPTOMS. SHE STATED BECAUSE PATIENT HAS LEUKEMIA, AND WAS RECENTLY POSITIVE FOR COVID WELL STILL IN A 3 MONTH WINDOW, NO CONTACT/DROP PRECAUTIONS ARE NEEDED. HOUSE SUP AWARE.
--- NOTE | 2022-06-11 19:12 | NUR ---
[employer] DID NOT WORK FOR OVER AN HOUR/ ON MANY COMPUTERS. [employer] NOT AVAILABLE. CHARGE AWARE. MULTIPLE RN WITH SAME ISSUE. BACK CHARTED MEDS. PHARM AWARE.
--- NOTE | 2022-06-11 19:42 | NUR ---
ATTEMPTED TO CALLED DR BOOGIE REGARDING COVID RESULT AND HIS REC FOR ISOLATION ( IF NEEDED. ) UNABLE TO GET AHOLD OF HIM. HOUSE SUP AWARE.
[2022-06-12 03:54] VITALS: BP 119/57; PULSE 79; TEMP 99.7
[2022-06-12 07:11] LABS: EOS % 0.9 % (0.0-4.0); GRAN # 1.8 K/mm3 (1.4-6.5); GRAN % 81.9 % (42.2-75.2); LYMPH # 0.2 K/mm3 (1.2-3.4); LYMPH % 7.9 % (20.0-51.0); MEAN CELL VOLUME 99 fl (80.0-100.0); MEAN CORPUSCULAR HGB CONC 33 g/dl (33.0-37.0); MEAN PLATELET VOLUME 11.8 fl (7.4-10.4); MONO # 0.2 K/mm3 (0.1-0.6); MONO % 7.9 % (1.7-9.3); PLATELET COUNT 99 K/mm3 (130-400); RED BLOOD COUNT 2.44 M/mm3 (4.20-5.60); REDCELL DISTRIBUTION WIDTH-CV 16.3 % (11.5-14.5)
[2022-06-12 07:19] LABS: HEMATOCRIT 24.1 % (42.0-52.0); MEAN CORPUSCULAR HEMOGLOBIN 33 pg (27-31)
[2022-06-12 07:35] LABS: CALCIUM 6.5 mg/dL (8.4-10.2); CREATININE, serum 0.72 mg/dL (0.72-1.25); MAGNESIUM 1.4 mg/dL (1.6-2.6); POTASSIUM 3.2 mmol/L (3.5-4.5)
[2022-06-12 07:38] VITALS: BP 129/62; PULSE 78; TEMP 99
[2022-06-12 11:24] VITALS: BP 124/61; PULSE 84; TEMP 98.8
--- NOTE | 2022-06-12 11:30 | NUR ---
PATIENT AWAKE AND ALERT. NO NEEDS OR COMPLAINTS AT THIS TIME. PATIENT IS RESTING IN RECLINER. LEFT FOOT ELEVTED ON A PILLOW. CHAIR ALARM ON, [facility]
--- NOTE | 2022-06-12 14:18 | NUR ---
JE faxed updates to Dasha at [facility].
--- NOTE | 2022-06-12 15:00 | NUR ---
PATIENT ALERT AND AWAKE, RESTING IN BED. BED ALARM ON. PICC S/L AFTER ANTX COMPLETED. LLE ELEVATED ON PILLOW. NO NEEDS OR COMPLAINTS AT THIS TIME. [facility], BED ALARM ON. WILL CONT TO MONITOR.
[2022-06-12 16:29] VITALS: BP 141/63; PULSE 84; TEMP 98.3
--- NOTE | 2022-06-12 18:35 | NUR ---
PATIENT REPOSITIONED AGAIN TO LEFT SIDE WITH PILLOWS.
[2022-06-12 19:06] VITALS: BP 122/55; PULSE 83; TEMP 98.4
[2022-06-13] VITALS (7 sets, daily range): BP systolic 104–138; BP diastolic 44–74; PULSE 74–97; TEMP 97.5–99.3
[2022-06-13 07:18] LABS: EOS % 1.5 % (0.0-4.0); GRAN # 2.1 K/mm3 (1.4-6.5); GRAN % 79.8 % (42.2-75.2); LYMPH # 0.3 K/mm3 (1.2-3.4); LYMPH % 10.1 % (20.0-51.0); MEAN CELL VOLUME 97 fl (80.0-100.0); MEAN CORPUSCULAR HGB CONC 34 g/dl (33.0-37.0); MEAN PLATELET VOLUME 10.2 fl (7.4-10.4); MONO # 0.2 K/mm3 (0.1-0.6); MONO % 7.5 % (1.7-9.3); PLATELET COUNT 126 K/mm3 (130-400); RED BLOOD COUNT 2.82 M/mm3 (4.20-5.60); REDCELL DISTRIBUTION WIDTH-CV 16.4 % (11.5-14.5)
[2022-06-13 07:20] LABS: HEMATOCRIT 27.2 % (42.0-52.0); HEMOGLOBIN 9.1 g/dl (13.5-18.0); MEAN CORPUSCULAR HEMOGLOBIN 32 pg (27-31)
[2022-06-13 07:36] LABS: ALBUMIN 2.2 gm/dL (3.4-4.8); BILIRUBIN,TOTAL 0.8 mg/dL (0.2-1.2); CREATININE, serum 0.85 mg/dL (0.72-1.25); MAGNESIUM 1.9 mg/dL (1.6-2.6); TOTAL PROTEIN 4.8 gm/dL (6.2-8.1)
[2022-06-13 07:58] LABS: BILIRUBIN,DIRECT 0.4 mg/dL (0.0-0.5)
--- NOTE | 2022-06-13 08:08 | NUR ---
PER PCT, AM VITALS SHOWED AUX TEMP OF 100.3, HOWEVER WHEN TAKEN ORALLY TEMP 98.2. ON ASSESMENT, PATIENT STATED HE DID FEEL A LITTLE WARM. TYLENOL GIVEN. PATIENT CURRENTLY WITH NO OTHER COMPLAINTS OR NEEDS. CALL LIGHT WITHIN REACH. BED ALARM ON. WILL CONT TO MONITOR.
[2022-06-13 13:06] LABS: BURR CELLS 1+
[2022-06-13 13:08] LABS: PATHOLOGY DIFF REVIEW OK +
--- NOTE | 2022-06-13 16:00 | NUR ---
OFFERED TO CHANGE PATIENTS COLOSTOMY BAG YESTERDAY, HE STATED TODAY WOULD BE THE DAY HE USUALLY CHANGES IT. THEN TODAY THE PATIENT ASKED ME IF HE COULD CHANGE IT TOMMOROW.
[2022-06-14] VITALS (7 sets, daily range): BP systolic 85–126; BP diastolic 40–56; PULSE 70–100; TEMP 97.2–101.3
[2022-06-14 06:51] LABS: CALCIUM 7.7 mg/dL (8.4-10.2); CREATININE, serum 1.04 mg/dL (0.72-1.25); POTASSIUM 3.9 mmol/L (3.5-4.5)
[2022-06-14 06:59] LABS: EOS % 0.9 % (0.0-4.0); GRAN # 1.7 K/mm3 (1.4-6.5); GRAN % 73.9 % (42.2-75.2); LYMPH # 0.3 K/mm3 (1.2-3.4); LYMPH % 12.4 % (20.0-51.0); MEAN CELL VOLUME 95 fl (80.0-100.0); MEAN CORPUSCULAR HGB CONC 34 g/dl (33.0-37.0); MEAN PLATELET VOLUME 11.3 fl (7.4-10.4); MONO # 0.3 K/mm3 (0.1-0.6); MONO % 12.4 % (1.7-9.3); PLATELET COUNT 127 K/mm3 (130-400); RED BLOOD COUNT 2.77 M/mm3 (4.20-5.60); REDCELL DISTRIBUTION WIDTH-CV 16.2 % (11.5-14.5)
[2022-06-14 07:06] LABS: HEMATOCRIT 26.3 % (42.0-52.0); HEMOGLOBIN 8.9 g/dl (13.5-18.0); MEAN CORPUSCULAR HEMOGLOBIN 32 pg (27-31)
--- NOTE | 2022-06-14 07:57 | NUR ---
PATIENT SLEEPING, RESTING IN BED. PATIENT AUX TEMP OF 101.2 (MOUTH BREATHING, ORAL TEMP SHOWS LOWER.) PATIENT HAD MULTIPLE BLANKETS ON. WHEN ASKED, PATIENTS ONLY COMPLAINT IS THAT HE FEELS WARM. PATIENTS SKIN IS HOT TO THE TOUCH. PATIENT REPOSITIONED AND GIVEN TYLENOL. NOW ON HIS LEFT SIDE WITH ONLY A SHEET. BED ALARM ON, CALL LIGHT WITHIN REACH. WILL CONT TO MONITOR.
[2022-06-14 08:16] LABS: STREP SCREEN NEGATIVE
--- NOTE | 2022-06-14 17:00 | NUR ---
PATIENT ALERT AND AWAKE, RESTING IN BED. COLOSTOMY BAG CHANGED. PATIENT SITTING IN BED, EATING DINNER AT THIS TIME. NO NEEDS OR COMPLAINTS. CALL LIGHT WITHIN REACH. BED ALARM ON.
[2022-06-15 04:08] VITALS: BP 124/63; PULSE 83; TEMP 98.7
[2022-06-15 07:03] LABS: MEAN CELL VOLUME 96 fl (80.0-100.0); MEAN CORPUSCULAR HGB CONC 33 g/dl (33.0-37.0); MEAN PLATELET VOLUME 11.6 fl (7.4-10.4); PLATELET COUNT 142 K/mm3 (130-400); REDCELL DISTRIBUTION WIDTH-CV 16.5 % (11.5-14.5)
[2022-06-15 07:06] LABS: HEMATOCRIT 25.8 % (42.0-52.0); HEMOGLOBIN 8.6 g/dl (13.5-18.0); MEAN CORPUSCULAR HEMOGLOBIN 32 pg (27-31)
[2022-06-15 07:54] VITALS: BP 134/55; PULSE 90; TEMP 101.6
[2022-06-15 08:19] LABS: ALBUMIN 2.1 gm/dL (3.4-4.8); BILIRUBIN,TOTAL 0.7 mg/dL (0.2-1.2); CALCIUM 7.7 mg/dL (8.4-10.2); CREATININE, serum 0.87 mg/dL (0.72-1.25); POTASSIUM 4.2 mmol/L (3.5-4.5); TOTAL PROTEIN 4.2 gm/dL (6.2-8.1)
[2022-06-15 08:22] LABS: BAND 5 % (0-10); METAMYELOCYTE 1 % (0-0); NEUTROPHILS 73 % (42.0-75.2)
[2022-06-15 08:23] LABS: BURR CELLS 1+; OVALOCYTES 1+; PLATELET ESTIMATE NORMAL (NORMAL); POIKILOCYTOSIS 2+
[2022-06-15 08:24] LABS: ANISOCYTOSIS 1+; LYMPHOCYTE 10 % (20.0-51.0); MICROCYTOSIS 1+; SCHISTOCYTES 1+
--- NOTE | 2022-06-15 11:58 | NUR ---
PT SLEEPING IN BED, AWAKES TO VERBAL STIMULI BUT QUICKLY FALLS BACK ASLEEP. MORNING MEDICATIONS GIVEN. SHIFT ASSESSMENT COMPLETED. L LEG WRAPPED PER ORTHO. PT CURRENTLY ON 2L OF OXYGEN VIA NC. COLOSTOMY BAG INTACT WITH GOOD OUTPUT. PICC LINE FLUSHES AND HAS GOOD BLOOD RETURN. PT REFUSING BREAKFAST. PT DENIES ANY PAIN OR NEEDS AT THIS TIME. CALL LIGHT WITHIN REACH. BED ALARMS IN PLACE. WILL CONTINUE TO MONITOR.
[2022-06-15 12:33] VITALS: BP 108/51; PULSE 80; TEMP 98.8
--- NOTE | 2022-06-15 14:57 | NUR ---
[employer] Miner Blasting faxed clinical updates to Dasha at [facility] who advised they tentatively have patient slotted for a bed when ready for DC.
--- NOTE | 2022-06-15 15:38 | NUR ---
Wood Experimental Mechanic met with patient and his , Opal to provide update.
[2022-06-15 17:00] VITALS: BP 103/44; PULSE 88; TEMP 98.8
[2022-06-15 19:36] VITALS: BP 122/57; PULSE 80; TEMP 98.5
[2022-06-15 23:07] VITALS: BP 129/58; PULSE 96; TEMP 101.5
[2022-06-16 03:26] VITALS: BP 142/47; PULSE 79; TEMP 98.8
[2022-06-16 08:19] VITALS: BP 102/71; PULSE 86; TEMP 98.6
[2022-06-16 09:09] LABS: EOS # 0.1 K/mm3 (0.0-0.7); EOS % 3.2 % (0.0-4.0); GRAN # 1.5 K/mm3 (1.4-6.5); GRAN % 70.1 % (42.2-75.2); LYMPH # 0.3 K/mm3 (1.2-3.4); LYMPH % 15.2 % (20.0-51.0); MEAN CELL VOLUME 97 fl (80.0-100.0); MEAN CORPUSCULAR HGB CONC 33 g/dl (33.0-37.0); MEAN PLATELET VOLUME 10.7 fl (7.4-10.4); MONO # 0.2 K/mm3 (0.1-0.6); MONO % 10.6 % (1.7-9.3); PLATELET COUNT 154 K/mm3 (130-400); RED BLOOD COUNT 2.65 M/mm3 (4.20-5.60); REDCELL DISTRIBUTION WIDTH-CV 16.2 % (11.5-14.5)
[2022-06-16 09:16] LABS: HEMATOCRIT 25.8 % (42.0-52.0); HEMOGLOBIN 8.4 g/dl (13.5-18.0); MEAN CORPUSCULAR HEMOGLOBIN 32 pg (27-31)
[2022-06-16 09:26] LABS: ALBUMIN 2.1 gm/dL (3.4-4.8); BILIRUBIN,TOTAL 0.7 mg/dL (0.2-1.2); C-REACTIVE PROTEIN 12.93 mg/dL (0.00-0.50); CALCIUM 8.6 mg/dL (8.4-10.2); CREATININE, serum 0.8 mg/dL (0.72-1.25); TOTAL PROTEIN 5.2 gm/dL (6.2-8.1)
--- NOTE | 2022-06-16 09:46 | NUR ---
ASSESSMENT COMPLETE. PT ALERT AND ORTIENT TO NAME- ABLE TO CONVERSE APPROPRIATELY. MEDICATIONS ADMINISTERED. NON PRODUCTIVE COUGH. COLOSTOMY INTACT. GAYMAR BOOT IN PLACE TO LLE PER ORTHO. PICC LINE FLUSHES WITH BLOOD RETURN. SITTING UP IN BED EATING BREAKFAST. ALLEVYN DRESSING TO COCCYX REPLACED, NO SKIN BREAKDOWN NOTED, SLIGHTLY REDENNED. WILL CONTINUE TO MONITOR.
[2022-06-16 13:14] VITALS: BP 128/69; PULSE 40; TEMP 103.1
[2022-06-16 14:21] LABS: CYTOMEGALOVIRUS DNA PCR Detected <50 IU/mL (()); CYTOMEGALOVIRUS DNA PCR LOG Detected <1.70 (())
--- NOTE | 2022-06-16 16:04 | NUR ---
PT UP TO CHAIR THIS AM FOR BREAKFAST AND REMAINED IN CHAIR THROUGH LUNCH. PT PLACED BACK TO BED AT 1400. DENIES PAIN. SCD APPLIED TO RLE. FAMILY AT BEDSIDE.
[2022-06-16 16:38] VITALS: BP 104/51; PULSE 92; TEMP 99.7
[2022-06-16 19:51] VITALS: BP 118/43; PULSE 83; TEMP 98.8
--- NOTE | 2022-06-16 21:57 | NUR ---
PATIENT IS LAYING IN BED WATCHING TELEVISION WITH NOTICEABLE COUGH. DENIES NEEDS FOR COUGH AT THIS TIME. PATIENT DENIES PAIN, NEEDS OR CONCERNS. PATIENT HAS CALL LIGHT IN HAND. PATIENT ENCOURAGED TO CALL WITH ANY NEEDS OR CONCERNS. PATIENT STATES UNDERSTANDING.
[2022-06-16 22:07] LABS: PROCALCITONIN 0.23 ng/mL (0.00-0.09)
[2022-06-17] VITALS (16 sets, daily range): BP systolic 81–137; BP diastolic 38–65; PULSE 81–100; TEMP 98.2–982
[2022-06-17 07:36] LABS: EOS # 0.1 K/mm3 (0.0-0.7); EOS % 2.9 % (0.0-4.0); GRAN # 1.5 K/mm3 (1.4-6.5); GRAN % 70.6 % (42.2-75.2); LYMPH # 0.3 K/mm3 (1.2-3.4); LYMPH % 15.9 % (20.0-51.0); MEAN CELL VOLUME 95 fl (80.0-100.0); MEAN CORPUSCULAR HGB CONC 33 g/dl (33.0-37.0); MEAN PLATELET VOLUME 11.4 fl (7.4-10.4); MONO # 0.2 K/mm3 (0.1-0.6); MONO % 9.2 % (1.7-9.3); PLATELET COUNT 178 K/mm3 (130-400); RED BLOOD COUNT 2.91 M/mm3 (4.20-5.60)
[2022-06-17 07:42] LABS: HEMATOCRIT 27.7 % (42.0-52.0); HEMOGLOBIN 9.2 g/dl (13.5-18.0); MEAN CORPUSCULAR HEMOGLOBIN 32 pg (27-31)
[2022-06-17 07:56] LABS: CALCIUM 8.8 mg/dL (8.4-10.2); CREATININE, serum 0.83 mg/dL (0.72-1.25); POTASSIUM 3.9 mmol/L (3.5-4.5)
--- NOTE | 2022-06-17 09:12 | NUR ---
ASSESSMENT COMPLETED. SITTING UP IN BED. A/O X3. FEBRILE- TYLENOL 650MG ADMINISTERED. PACEMAKER TO LEFT UPPER CHEST NOTED. SKIN TEAR TO RT ELBOW, ALLEVYN DRESSING CDI. ALLEVYN DRESSING TO COCCYX CDI- WAS CHANGED YESTERDAY WITH NO SKIN BREAKDOWN NOTED. GEL DRESSING TO POSTERIOR LEFT HEAD CDI. GAYMAR BOOT TO LEFT LLE WITH POPITEAL PULSE PRESENT.
[2022-06-17 10:31] LABS: ALBUMIN 2.2 gm/dL (3.4-4.8); BILIRUBIN,TOTAL 0.8 mg/dL (0.2-1.2); CALCIUM 8.8 mg/dL (8.4-10.2); CREATININE, serum 0.83 mg/dL (0.72-1.25); TOTAL PROTEIN 5.4 gm/dL (6.2-8.1)
--- NOTE | 2022-06-17 11:27 | NUR ---
PT RESTING IN BED. AWAKENS EASILY. ORTIENTED X3. AFEBRILE AT 98.6 AXILLARY TEMP. REPOSITIONED TO RIGHT SIDE. O2 2L PLACED MY RESP THERAPY DUE TO RA SP02 AT 89%. SPO2 NOW 97% ON 2L/NC. ALLEVYN DRESSING CHANGED TO COCCYX. COCCYX CONTINUES TO BE REDDENED. MEPLEX CHANGED TO RT ELBOW. WOUND NOT ACTIVELY BLEEDING BUT BLOOD NOTED ON DRESSING THAT WAS REMOVED.
--- NOTE | 2022-06-17 11:50 | NUR ---
B/P 81/38 AND PULSE [address] ENGLE NOTIFIED. RECEIVED ORDER FOR 250 NS BOLUS. INFUSION INTITIATED. CURRENT B/P 81/35. WILL CONTINUE TO MONITOR CLOSELY AND MONITOR VITALS Q 15 MIN. CALLED WHILE THIS NURSE AT BEDSIDE. UPDATED OF CURRENT CONDITION AND CLOSE MONITORING. AND PT BOTH VERBALIZE UNDERSTANDING.
--- NOTE | 2022-06-17 12:43 | NUR ---
PT RESTING IN BED. SLEEPING. SEE FLOWSHEET FOR VS. TELE SR. WILL CONTINUE TO MONITTOR.
--- NOTE | 2022-06-17 13:19 | NUR ---
1ST BOLUS OF NS COMPLETED. B/P CONTINUE TO BE <100. SEE FLOWSHEET FOR VS. MELANIA KELLEY RN HANGS 2ND BOLUS OF NS AT THIS TIME. WILL CONTINUE TO MONITOR CLOSELY.
--- NOTE | 2022-06-17 13:52 | NUR ---
PT AWAKE AND FAMILY AT BEDSIDE. RESPIRATIONS 20/MIN WHILE AWAKE. SEE FLOWSHEET FOR VS. REPOSITIONED TO LEFT SIDE. DENIES PAIN OR NEEDS AT THIS TIME. WILL CONTINUE TO MONITOR CLOSELY.
--- NOTE | 2022-06-17 14:22 | NUR ---
PT CONTINUES TO VISIT WITH FAMILY. SEE FLOWSHEET FOR VS. WILL CONTINUE TO MONITOR CLOSELY.
--- NOTE | 2022-06-17 14:45 | NUR ---
PT CONTINUES BE AWAKE VISITING WITH FAMILY. DRINKING AN ENSURE AND ATE A CHICKEN SALAD SANDWICH THAT THE FAMILY BROUGHT IN. SEE FLOWSHEET FOR VS. AFEBRILE AT 98.6.
--- NOTE | 2022-06-17 15:43 | NUR ---
ALERT AND ORIENTED. CONTINUES TO VISIT WITH FAMILY. COUGH IMPROVED TODAY. CONTINUE TO REPOSITION Q2 HRS. REPORT 12-08/04 PAIN TO LLE. OFFERED TYLENOL BUT DECLINES. AFEBRILE. BLOOD PRESSURES ARE IMPROVING. RESPIRATIONS LESS PER MINUTE WHILE PATIENT IS AWAKE. SEE FLOWSHEET FOR VS. NO ISSUES WITH COLOSTOMY. VOIDED 350CC THIS AM BUT HAS NOT VOIDED SINCE. SEE FLOWSHEET. WILL CONTINUE TO MONITOR.
--- NOTE | 2022-06-17 20:45 | NUR ---
Patient A/O but drowsy, he reports he's feeling tired, denies pain, lungs sounded coarse, denies SOA, head to toe assessment done, also reports non-productive cough, remains on oxygen via nasal prong at 1/5LPM, tylenol given temp was 101.8, left boot in place to left leg, with colostomy bag, call light and personal items within reach, will continue to monitor.
[2022-06-18 00:05] VITALS: BP 106/50; PULSE 92; TEMP 98.7
[2022-06-18 04:26] VITALS: BP 103/54; PULSE 85; TEMP 98.5
--- NOTE | 2022-06-18 06:24 | NUR ---
Patient had an uneventful night, slept most of the night, remains on 2LPM via nasal prong, brace to left leg, repositioned regularly, dressing to sacral and right elbow CDI, call light and personal items within reach, will continue to monitor.
[2022-06-18 07:35] VITALS: BP 122/51; PULSE 90; TEMP 98
[2022-06-18 07:38] LABS: MEAN CELL VOLUME 97 fl (80.0-100.0); MEAN CORPUSCULAR HGB CONC 33 g/dl (33.0-37.0); MEAN PLATELET VOLUME 10.8 fl (7.4-10.4); PLATELET COUNT 176 K/mm3 (130-400); RED BLOOD COUNT 2.66 M/mm3 (4.20-5.60); REDCELL DISTRIBUTION WIDTH-CV 16.1 % (11.5-14.5)
[2022-06-18 07:43] LABS: HEMATOCRIT 25.8 % (42.0-52.0); HEMOGLOBIN 8.4 g/dl (13.5-18.0); MEAN CORPUSCULAR HEMOGLOBIN 32 pg (27-31)
[2022-06-18 07:52] LABS: CALCIUM 8.6 mg/dL (8.4-10.2); CREATININE, serum 0.86 mg/dL (0.72-1.25); POTASSIUM 4.1 mmol/L (3.5-4.5)
--- NOTE | 2022-06-18 08:00 | NUR ---
Patient laying in bed, easily awakened with verbal command, A&Ox3. VSS 2L NC O2, no reported SOB. IV CDI. Denies pain and discomfort. Reports being tired and wanting to more sleep. LF leg in boot. Colostomy intact. Nursing staff encouraging patient to increase PO intake. No further needs expressed. Call light within reach
[2022-06-18 08:20] LABS: BAND 7 % (0-10); BASOPHIL 1 % (0-2); BURR CELLS 1+; LYMPHOCYTE 19 % (20.0-51.0); NEUTROPHILS 68 % (42.0-75.2); PLATELET ESTIMATE NORMAL (NORMAL)
[2022-06-18 08:21] LABS: ANISOCYTOSIS 1+; HYPOCHROMIA 1+; OVALOCYTES 2+; POIKILOCYTOSIS 1+
--- NOTE | 2022-06-18 11:56 | NUR ---
Truck Crane Operator Helper rounds: Truck Crane Operator Helper visit attempted. Miguel's room was dark. Patient was sleeping. Truck Crane Operator Helper prayed for Patient at the doorway to the room.
[2022-06-18 12:47] VITALS: BP 117/60; PULSE 100; TEMP 98.3
[2022-06-18 15:42] VITALS: BP 120/53; PULSE 104; TEMP 100.4
--- NOTE | 2022-06-18 16:19 | NUR ---
Informed DR DAVENPORT of concerns of distention around LLQ colostomy site.
--- NOTE | 2022-06-18 18:19 | NUR ---
Patient sitting up in bed, family trying to get the patient to eat. Patient wanting to sleep and stating that he is tired and hasnt gotten enough sleep. A&Ox3. VSS 2L NC O2. IV CDI. Colostomy intact, LLQ distended, patient does not report any pain. LF leg boot on and intact. Call light within reach.
[2022-06-18 20:00] VITALS: BP 97/45; BP 97/48; PULSE 78; TEMP 98
[2022-06-19 00:10] VITALS: BP 113/56; PULSE 72; TEMP 97.5
[2022-06-19 04:51] VITALS: BP 116/50; PULSE 86; TEMP 98.6
[2022-06-19 05:29] LABS: EOS # 0.1 K/mm3 (0.0-0.7); GRAN # 1.4 K/mm3 (1.4-6.5); GRAN % 69.9 % (42.2-75.2); LYMPH # 0.3 K/mm3 (1.2-3.4); LYMPH % 16.1 % (20.0-51.0); MEAN CELL VOLUME 98 fl (80.0-100.0); MEAN CORPUSCULAR HGB CONC 33 g/dl (33.0-37.0); MEAN PLATELET VOLUME 11.1 fl (7.4-10.4); MONO # 0.2 K/mm3 (0.1-0.6); PLATELET COUNT 188 K/mm3 (130-400); RED BLOOD COUNT 2.69 M/mm3 (4.20-5.60); REDCELL DISTRIBUTION WIDTH-CV 16.2 % (11.5-14.5)
[2022-06-19 05:48] LABS: HEMATOCRIT 26.4 % (42.0-52.0); HEMOGLOBIN 8.6 g/dl (13.5-18.0); MEAN CORPUSCULAR HEMOGLOBIN 32 pg (27-31)
[2022-06-19 05:50] LABS: CALCIUM 8.9 mg/dL (8.4-10.2); CREATININE, serum 0.83 mg/dL (0.72-1.25); POTASSIUM 4.1 mmol/L (3.5-4.5)
[2022-06-19 07:45] VITALS: BP 121/45; PULSE 96; TEMP 98.7
[2022-06-19 12:30] VITALS: BP 115/86; PULSE 117; TEMP 98
--- NOTE | 2022-06-19 13:54 | NUR ---
Gastroenterology Manager faxed clinical updates to Dasha at [facility].
[2022-06-19 16:45] VITALS: BP 99/46; PULSE 97; TEMP 98
[2022-06-19 21:04] VITALS: BP 107/52; PULSE 84; TEMP 98
[2022-06-19 23:17] LABS: SPOTTED FEVER IGG ANTIBODY <1:64 (<1:64)
[2022-06-20] VITALS (7 sets, daily range): BP systolic 103–116; BP diastolic 43–65; PULSE 69–76; TEMP 97.4–98.4
--- NOTE | 2022-06-20 08:00 | NUR ---
Patient laying in bed sleeping, easily awakened with verbal command, A&Ox4. VSS 2L NC O2, no reported SOB. IV CDI. Denies pain and discomfort. Call light within reach. Bed alarm on
--- NOTE | 2022-06-20 11:15 | NUR ---
Patient transfered to room 306 from room 357 in a wheelchair. A&Ox4. VSS. IV CDI. Nurse changed colostomy. Dressing sacrum intact. Patient pivot transfer. Denies pain and discomfort. No further needs expressed. Call light within reach
--- NOTE | 2022-06-20 14:18 | NUR ---
Per Assessment Nurse rounds: Patient on isolation precautions. Chaplain oconnor for Patient from [facility].
[2022-06-21 03:20] VITALS: BP 110/51; PULSE 76; TEMP 98.5
[2022-06-21 07:36] VITALS: BP 131/56; PULSE 88; TEMP 98.1
[2022-06-21 07:53] LABS: MEAN CELL VOLUME 99 fl (80.0-100.0); MEAN CORPUSCULAR HGB CONC 31 g/dl (33.0-37.0); MEAN PLATELET VOLUME 11.1 fl (7.4-10.4); PLATELET COUNT 245 K/mm3 (130-400); RED BLOOD COUNT 2.94 M/mm3 (4.20-5.60); REDCELL DISTRIBUTION WIDTH-CV 15.8 % (11.5-14.5)
[2022-06-21 08:00] LABS: HEMATOCRIT 29.1 % (42.0-52.0); HEMOGLOBIN 9.1 g/dl (13.5-18.0); MEAN CORPUSCULAR HEMOGLOBIN 31 pg (27-31)
[2022-06-21 08:23] LABS: CALCIUM 8.7 mg/dL (8.4-10.2); POTASSIUM 4.4 mmol/L (3.5-4.5)
[2022-06-21 08:37] LABS: CREATININE, serum 0.76 mg/dL (0.72-1.25)
[2022-06-21 08:43] LABS: BAND 1 % (0-10); LYMPHOCYTE 8 % (20.0-51.0); NEUTROPHILS 84 % (42.0-75.2)
[2022-06-21 08:44] LABS: ANISOCYTOSIS 1+; HYPOCHROMIA 2+; PLATELET ESTIMATE NORMAL (NORMAL)
[2022-06-21 08:46] LABS: OVALOCYTES 2+
--- NOTE | 2022-06-21 10:43 | NUR ---
SHIFT ASSESSMENT COMPLETED AND MEDICATIONS ADMINISTERED PER ORDERS. PATIENT IS ALERT AND ORIENTED X4. DENIES PAIN. DENIES SOB, BUT NOTED WITH NON-PRODUCTIVE COUGH. LUNGS DIMINISHED IN THE BASES. ABD MILDLY DISTENDED TO LEFT SIDE. COLOSTOMY NOTED WITH RED STOMA, NO REDNESS TO SURROUNDING SKIN, PATIENT DENIES PAIN OR DISCOMFORT TO THE AREA. DENIES ANY NEEDS AT THIS TIME. CALL LIGHT WITHIN REACH.
[2022-06-21 11:47] VITALS: BP 106/58; PULSE 106; TEMP 98.2
--- NOTE | 2022-06-21 12:53 | NUR ---
Partition Assembly Machine Operator rounds: Isolation precautions. Chaplain rodriguezyed in hallway outside of room.
[2022-06-21 15:27] VITALS: BP 103/52; PULSE 97; TEMP 98
--- NOTE | 2022-06-21 17:35 | NUR ---
PATIENT WITH PICC TO RIGHT UPPER ARM, UNABLE TO FLUSH BOTH PORTS. DR. RODNEY NOTIFIED, ORDER RECEIVED FOR CATH DENISE. CATH DENISE INJECTED BY THIS RN WITH CHARGE NURSE AT BEDSIDE INTO BOTH PORTS, BUT ONLY EFFECTIVE IN RED PORT. 3ML BLOOD REMOVED FROM RED PORT AND WASTED, PORT FLUSHED, AND CAPS CHANGED. UNABLE TO DRAW BACK ANY BLOOD FROM PURPLE PORT AFTER CATH DENISE. DR. RODNEY NOTIFIED, TAPE PLACED ON PURPLE PORT TO NOTIFY STAFF NOT TO USE, WILL UPDATE HS RN. PATIENT ALSO WITH SOME DISTENTION AROUND STOMA. STOMA IS RED IN COLOR, NO REDNESS TO SURROUNDING SKIN, AND NO REPORTS OF PAIN OR DISCOMFORT. PATIENT WITH MODERATE OUTPUT TO COLOSTOMY BAG. DR. RODNEY UPDATED.
[2022-06-21 20:00] VITALS: BP 111/59; PULSE 85; TEMP 97.7
[2022-06-22] VITALS (9 sets, daily range): BP systolic 87–127; BP diastolic 45–66; PULSE 74–113; TEMP 98–98.3
--- NOTE | 2022-06-22 04:45 | NUR ---
ASSESSMENT COMPLETE FOR REMELTER. PT RESTING IN BED SLEEPING. PT DENIED GENERAL PAIN, CHEST PAIN, PALPITATIONS, SOB, N,V,D OR DIZZINESS. PT HAD NO FEVERS THIS SHIFT. PT DENIED DISCOMFORT OR PAIN TO LLE, COLOSTOMY OR PACER SITES. PT EXPRESSED NO ADDITIONAL NEEDS AT THIS TIME. CALL LIGHT WITHIN REACH.
[2022-06-22 07:14] LABS: HEMATOCRIT 28.7 % (42.0-52.0); HEMOGLOBIN 9.5 g/dl (13.5-18.0); MEAN CELL VOLUME 95 fl (80.0-100.0); MEAN CORPUSCULAR HEMOGLOBIN 31 pg (27-31); MEAN CORPUSCULAR HGB CONC 33 g/dl (33.0-37.0); MEAN PLATELET VOLUME 11.1 fl (7.4-10.4); PLATELET COUNT 260 K/mm3 (130-400); RED BLOOD COUNT 3.03 M/mm3 (4.20-5.60); REDCELL DISTRIBUTION WIDTH-CV 15.9 % (11.5-14.5)
[2022-06-22 07:24] LABS: CALCIUM 9.4 mg/dL (8.4-10.2); CREATININE, serum 0.83 mg/dL (0.72-1.25); POTASSIUM 4.2 mmol/L (3.5-4.5)
[2022-06-22 07:57] LABS: BAND 3 % (0-10); LYMPHOCYTE 10 % (20.0-51.0); NEUTROPHILS 81 % (42.0-75.2)
[2022-06-22 07:58] LABS: ANISOCYTOSIS 1+; OVALOCYTES 1+; PLATELET ESTIMATE NORMAL (NORMAL)
--- NOTE | 2022-06-22 08:10 | NUR ---
Pt laying in bed. Morning medications administered per eMAR. Having issues with scanner; Pharmacy aware. Shift assessment completed. Pt remains on 1.5L per NC with O2 sat at 90%. Telemetry on; paced and tachycardic. PICC in R upper arm intact with arm circumference of 30cm. Colostomy intact. LLE remains in boot with pedal pulses noted. No further request at this time. Call light within reach. Fall precautions remain in place. Droplet/contact precautions remain in place.
--- NOTE | 2022-06-22 10:40 | NUR ---
Repored unableto flush flushed 6 purple lumen. Sterile dressing change performed. Site cleansed with ChloraPrep x1, Chlorhexidine impregnated disc applied, skin prep, StatLock, and Tegaderm applied. Tape removed from purple port and flushed with 10 mL normal saline without difficulty or resistance good blood return noted. Flushed red port with 10 mL normal saline with good blood return noted without difficulty or resistance. Primary care nurse informed not to apply tape to a port that is not functioning. It is important to make sure both lumens have a blood return.
--- NOTE | 2022-06-22 13:09 | NUR ---
Pole Lift Operator contacted [facility] and faxed clinical updates.
[2022-06-23 04:51] VITALS: BP 113/59; PULSE 79; TEMP 98.1
[2022-06-23 07:20] LABS: MEAN CELL VOLUME 97 fl (80.0-100.0); MEAN CORPUSCULAR HGB CONC 32 g/dl (33.0-37.0); MEAN PLATELET VOLUME 11.3 fl (7.4-10.4); PLATELET COUNT 258 K/mm3 (130-400); RED BLOOD COUNT 2.97 M/mm3 (4.20-5.60); REDCELL DISTRIBUTION WIDTH-CV 15.9 % (11.5-14.5)
[2022-06-23 07:22] LABS: CALCIUM 9.2 mg/dL (8.4-10.2); CREATININE, serum 0.89 mg/dL (0.72-1.25); POTASSIUM 4.2 mmol/L (3.5-4.5)
--- NOTE | 2022-06-23 07:22 | NUR ---
Pt laying in bed. Morning medications administered per eMAR. Shift assessment completed. VSS. Pt remains on 1.5L per NC. Telemetry on; paced. PICC in R upper arm CDI with 30cm circumference. Colostomy intact. LLE remains in boot; pedal pulses noted. No further request at this time. Call light within reach. Fall precautions remain in place. Droplet/contact precautions remain in place.
[2022-06-23 07:26] LABS: HEMATOCRIT 28.8 % (42.0-52.0); HEMOGLOBIN 9.2 g/dl (13.5-18.0); MEAN CORPUSCULAR HEMOGLOBIN 31 pg (27-31)
[2022-06-23 08:04] VITALS: BP 118/61; PULSE 88; TEMP 98.7
[2022-06-23 08:34] LABS: BAND 4 % (0-10); HYPOCHROMIA 1+; LYMPHOCYTE 7 % (20.0-51.0); METAMYELOCYTE 3 % (0-0); NEUTROPHILS 75 % (42.0-75.2); PLATELET ESTIMATE NORMAL (NORMAL)
[2022-06-23 08:35] LABS: ANISOCYTOSIS 1+
[2022-06-23 11:26] VITALS: BP 94/46; PULSE 119; TEMP 97.6
[2022-06-23 14:02] VITALS: BP 102/56; PULSE 92
[2022-06-23 15:44] VITALS: BP 103/55; PULSE 89; TEMP 97.4
--- NOTE | 2022-06-23 16:01 | NUR ---
Bit And Shank Department Supervisor faxed clinical updates to [facility].
--- NOTE | 2022-06-23 19:37 | NUR ---
PATIENT RESTING IN BED. PATIENT DENIES NEEDS OR CONCERNS AT THIS TIME. CALL LIGHT IS WITHIN REACH.
[2022-06-23 20:59] VITALS: BP 103/62; PULSE 82; TEMP 98.6
[2022-06-24] VITALS (8 sets, daily range): BP systolic 82–110; BP diastolic 42–69; PULSE 81–113; TEMP 97.9–99.2
--- NOTE | 2022-06-24 05:13 | NUR ---
PATIENT HAS HAD AN UNEVENTFUL NIGHT AND HAS REMAINED AFEBRILE THIS SHIFT. PATIENT VITALS REMAIN WNL. CALL LIGHT REMAINS WITHIN REACH.
[2022-06-24 07:39] LABS: MEAN CELL VOLUME 95 fl (80.0-100.0); MEAN CORPUSCULAR HEMOGLOBIN 32 pg (27-31); MEAN CORPUSCULAR HGB CONC 33 g/dl (33.0-37.0); MEAN PLATELET VOLUME 11.3 fl (7.4-10.4); PLATELET COUNT 266 K/mm3 (130-400); RED BLOOD COUNT 3.17 M/mm3 (4.20-5.60); REDCELL DISTRIBUTION WIDTH-CV 16.1 % (11.5-14.5)
[2022-06-24 07:41] LABS: HEMATOCRIT 30.2 % (42.0-52.0)
[2022-06-24 07:45] LABS: CALCIUM 9.4 mg/dL (8.4-10.2); CREATININE, serum 0.79 mg/dL (0.72-1.25); POTASSIUM 4.4 mmol/L (3.5-4.5)
--- NOTE | 2022-06-24 07:55 | NUR ---
Pt laying in bed. Morning medications administered per eMAR. Shift assessment completed. Pt remains on 1L per NC. Telemetry on; paced although pt has been tachycardic. PICC in R upper arm intact with 30cm arm circumference. Colostomy intact. LLE remains in boot with pedal pulses noted. Pt denies having any CP or SOB. Call light within reach. Fall precautions remain in place. Droplet/contact precautions remain in place.
[2022-06-24 08:48] LABS: ANISOCYTOSIS 1+; LYMPHOCYTE 10 % (20.0-51.0); PLATELET ESTIMATE NORMAL (NORMAL)
[2022-06-24 08:56] LABS: NEUTROPHILS 71 % (42.0-75.2)
[2022-06-24 08:57] LABS: BAND 8 % (0-10); METAMYELOCYTE 2 % (0-0); MYELOCYTE 2 % (0-0)
--- NOTE | 2022-06-24 09:11 | NUR ---
Pt HR elevated to 130s per telemetry. VS obtained. Physician, , notified and EKG on order.
--- NOTE | 2022-06-24 11:28 | NUR ---
Pt BP is 82/49; Physician, , notified. NS 500mL bolus x1 IV on order.
--- NOTE | 2022-06-24 15:56 | NUR ---
Medication Aide faxed clinical updates to Umesh at [facility] who advised due to patient's covid status, they will not accept until 06/30. SW attempted to contact patient by phone with no answer. JE spoke with patient's daughter, Belgica and advised [facility] cannot accept at this time due to covid status. Belgica feels patient is down and it would help to get out of the hospital. Belgica is agreeable to referrals being sent to [facility], and [facility]. SW faxed referrals.
--- NOTE | 2022-06-24 19:43 | NUR ---
PATIENT IS LAYING IN BED, RESPIRATORY IS IN ROOM AT THIS TIME. THIS NURSE BRINGS DINNER TRAY IN FOR PATIENT AND ASSISTS PATIENT GETTING SET-UP FOR DINNER. PATIENT STATES APPRECIATION. PATIENT DENIES PAIN, OR ANY OTHER FURTHER NEEDS OR CONCERNS. PATIENT HAS CALL LIGHT IN HAND AND IS ENCOURAGED TO USE WITH NEEDS OR CONCERNS.
[2022-06-25 05:02] VITALS: BP 131/69; PULSE 57; TEMP 98.7
[2022-06-25 07:22] VITALS: BP 104/58; PULSE 100; TEMP 98.4
--- NOTE | 2022-06-25 08:43 | NUR ---
SHIFT ASSESSMENT COMPLETED AND MORNING MEDICATIONS ADMINISTERED PER ORDER. DENIES PAIN. LUNGS COARSE THROUGHOUT. ALERT AND ORIENTED X4. ON FLUIDS AT 50ML/HR, TOLERATING WELL. PICC TO RIGHT UPPER ARM WITH BOTH PORTS PATENT. CAM BOOT NOTED TO LEFT FOOT. DENIES NEEDS AT THIS TIME. CALL LIGHT IN REACH.
[2022-06-25 11:17] VITALS: BP 103/54; PULSE 108; TEMP 99
--- NOTE | 2022-06-25 11:41 | NUR ---
Violetta at [facility] advised they have no male beds at this time. JE contacted Alma Rosa at [facility] who requested referral be emailed, which JE did. Melvin at [facility] is reviewing referral but inquired when patient will be out of isolation. JE spoke with Hospitalist and request he speak with ID Physician for this information.
--- NOTE | 2022-06-25 14:20 | NUR ---
At this time, the physician at this time has not heard from ID on the patients isolation days.
[2022-06-25 15:36] VITALS: BP 97/49; PULSE 102; TEMP 97.6
--- NOTE | 2022-06-25 17:29 | NUR ---
PATIENT UP IN CHAIR AT THIS TIME EATING EVENING MEAL. ON FLUIDS AT 50ML/HR, TOLERATING WELL. DENIES ANY PAIN. PATIENT STATES HE WOULD LIKE TO GET BACK IN BED AFTER EVENING MEAL. DENIES ANY OTHER NEEDS AT THIS TIME. CALL LIGHT WITHIN REACH.
[2022-06-25 19:48] VITALS: BP 123/56; PULSE 106; TEMP 97.8
[2022-06-25 23:59] VITALS: BP 111/54; PULSE 81; TEMP 98.5
[2022-06-26 04:23] VITALS: BP 122/58; PULSE 98; TEMP 97.9
--- NOTE | 2022-06-26 05:00 | NUR ---
ASSESSMENT COMPLETE FOR DRIER FEEDER. PT RESTING IN BED SLEEPING. PT DENIED GENERAL PAIN, CHEST PAIN, PALPITATIONS (ALTHOUGH HE WAS TACHY AT LEAST ONCE THIS SHIFT), N,V,D, SOB OR DIZZINESS. PT HAD A PRETTY UNEVENTFUL NIGHT THIS SHIFT. PT EXPRESSED NO ADDITIONAL NEEDS AT THIS TIME. CALL LIGHT WITHIN REACH.
[2022-06-26 08:04] VITALS: BP 113/49; PULSE 117; TEMP 97.9
--- NOTE | 2022-06-26 09:21 | NUR ---
SHIFT ASSESSMENT COMPLETED AND MORNING MEDICATIONS ADMINISTERED PER ORDER. PATIENT IS ALERT AND ORIENTED X4. DENIES PAIN. LUNGS COARSE THROUGHOUT. EDEMA TO RIGHT FOREARM NOTED, NO REDNESS, EDEMA, OR FIRMNESS NOTED TO PICC SITE, [facility] UPDATED REGARDING FOREARM EDEMA. PATIENT'S ABDOMEN IS DISTENDED ON THE LEFT SIDE, DR. GUPTA UPDATED. STOMA RED IN COLOR, PATIENT DENIES ANY PAIN TO THE AREA, GOOD OUTPUT FROM STOMA NOTED. BLANCHABLE REDNESS NOTED TO COCCYX, PROTECTIVE DRESSING IN PLACE. CAM BOOT TO LEFT FOOT. DENIES NEEDS AT THIS TIME. CALL LIGHT WITHIN REACH.
[2022-06-26 11:45] VITALS: BP 94/45; PULSE 121; TEMP 98
--- NOTE | 2022-06-26 13:46 | NUR ---
PATIENT HYPOTENSIVE WITH SBP IN THE 90S AND HR OF 121. DR. GUPTA UPDATED, NEW ORDER RECEIVED TO NOTIFY PHYSICIAN OF SBP LESS THAN 90 OR HEART RATE ABOVE 130 OR BELOW 50.
[2022-06-26 15:19] VITALS: BP 101/57; PULSE 88; TEMP 98.2
--- NOTE | 2022-06-26 17:44 | NUR ---
PATIENT IN BED SLEEPING AT THIS TIME. DENIES ANY PAIN. DENIES ANY NEEDS. CALL LIGHT WITHIN REACH.
[2022-06-26 19:38] VITALS: BP 101/47; PULSE 90; TEMP 98.1
[2022-06-26 23:15] VITALS: BP 105/56; PULSE 79; TEMP 97.6
[2022-06-27 04:17] VITALS: BP 112/51; PULSE 79; TEMP 98.9
[2022-06-27 08:00] VITALS: BP 108/51; PULSE 101; TEMP 97.4
--- NOTE | 2022-06-27 10:29 | NUR ---
PATIENT SLEEPING UNTIL NOW, MUCH ENCOURAGEMENT NEED TO GET HIM TO WAKE UP AND EAT. ASSISTED HIM WITH BED POSITION AND PLACED MEAL IN FRONT OF HIM. DENIES PAIN AT THIS TIME. RESP EVEN AND EASY. ORIENTED TO PERSON AND PLACE.
[2022-06-27 12:00] VITALS: BP 110/53; PULSE 116; TEMP 97.8
--- NOTE | 2022-06-27 13:04 | NUR ---
Melvin at [facility] advised they would not accept break in stay letter signed by hospitalist and that it had to be from the surgeon.
[2022-06-27 16:00] VITALS: BP 101/53; PULSE 101; TEMP 98
--- NOTE | 2022-06-27 17:46 | NUR ---
PATIENT DOES NOT SHOW ANY DESIRE TO GET UP AND MOVE AROUND, ENCOURAGED SEVERAL TIMES TODAY TO GET OUT OF BED WERE UNSUCCESSFUL. USES URINAL FOR VOIDING AND NEEDS MINIMAL ASSISTANCE WITH THIS. INCENTIVE SPRIROMETER HAS IMPROVED THROUGH OUT THE DAY. SMALL AMOUNT OF SOFT FORMED STOOL IN COLOSTOMY AT THIS TIME. REMAINS ON 2l/NC.
[2022-06-27 19:41] VITALS: BP 98/52; PULSE 104; TEMP 98
[2022-06-27 23:20] VITALS: BP 93/50; PULSE 81; TEMP 98.2
[2022-06-28 04:36] VITALS: BP 108/52; PULSE 85; TEMP 98
[2022-06-28 07:38] VITALS: BP 103/52; PULSE 99; TEMP 98.3
[2022-06-28 11:47] VITALS: BP 108/41; PULSE 114; TEMP 99
[2022-06-28 15:11] VITALS: BP 100/48; PULSE 108; TEMP 97.9
--- NOTE | 2022-06-28 15:29 | NUR ---
PATIENT'S COLOSTOMY CHANGED R/T APPEARANCE OF FLANGE AND BAG. PATIENT ASSISTED WITH THE CHANGE. PATIENT TALKED WITH FAMILY AND ASKED THEM TO PROVIDE MORE COLOSTOMY SUPPLIES. PATIENT TOLERATED CHANGE WELL. HE IS ALERT AND ORIENTED X3, RESP EVEN AND EASY BUT DOES SHOW SIGNS OF DSYNPEA WITH EXERTION WITH RECOVER IN 2 MINUTES, CONTINUES ON OXYGEN VIA NC.
[2022-06-28 19:33] VITALS: BP 112/54; PULSE 89; TEMP 98
[2022-06-29] VITALS (7 sets, daily range): BP systolic 101–118; BP diastolic 48–58; PULSE 78–117; TEMP 97.4–98.3
--- NOTE | 2022-06-29 04:00 | NUR ---
ASSESSMENT COMPLETE FOR PIT CLERK. PT RESTING IN BED WATCHING TV. PT DENIED GENERAL PAIN, CHEST PAIN, PALPITATIONS, SOB, N,V,D OR DIZZINESS. PT HAD A PRETTY UNEVENTFUL NIGHT SO FAR. PT EXPRESSED NO ADDITIONAL NEEDS AT THIS TIME. CALL LIGHT WITHIN REACH.
[2022-06-29 07:15] LABS: CALCIUM 9.6 mg/dL (8.4-10.2); CREATININE, serum 0.84 mg/dL (0.72-1.25); POTASSIUM 4.4 mmol/L (3.5-4.5)
[2022-06-29 10:42] LABS: MEAN CELL VOLUME 96 fl (80.0-100.0); MEAN CORPUSCULAR HGB CONC 32 g/dl (33.0-37.0); MEAN PLATELET VOLUME 11.3 fl (7.4-10.4); PLATELET COUNT 225 K/mm3 (130-400); RED BLOOD COUNT 3.13 M/mm3 (4.20-5.60)
[2022-06-29 10:43] LABS: HEMOGLOBIN 9.6 g/dl (13.5-18.0); MEAN CORPUSCULAR HEMOGLOBIN 31 pg (27-31)
[2022-06-29 10:49] LABS: INR 1.2 (0.8-3.0); PROTHROMBIN TIME 13.2 SECONDS (9.7-12.8)
[2022-06-29 11:00] LABS: ALBUMIN 2.5 gm/dL (3.4-4.8); BILIRUBIN,TOTAL 0.6 mg/dL (0.2-1.2); CALCIUM 9.9 mg/dL (8.4-10.2); CREATININE, serum 0.84 mg/dL (0.72-1.25); POTASSIUM 4.3 mmol/L (3.5-4.5); TOTAL PROTEIN 5.8 gm/dL (6.2-8.1)
[2022-06-29 11:03] LABS: PARTIAL THROMBOPLASTIN TIME 48.8 SECONDS (26.0-37.0)
--- NOTE | 2022-06-29 11:14 | NUR ---
Patient had a significant increase in oxygen needs. Clinical updates sent to Melvin at [facility].
--- NOTE | 2022-06-29 17:45 | NUR ---
PT ARRIVED FROM MEDICAL. PT TRANSFERED TO BED. MONTIORS APPLIED. VSS. PT ON 15L OXYMASK. PT ORIENTED TO ROOM AND FLOOR. CALL LIGHT GIVEN. PT INSTRUCTED TO CALL WITH ALL NEEDS. BEDALARM ACTIVE.
[2022-06-30] VITALS (801 sets, daily range): BP systolic 98–108; BP diastolic 54–63; PULSE 91–110; TEMP 97.8–99.4; O2SAT 83–99
--- NOTE | 2022-06-30 07:00 | NUR ---
PT SLEEPING IN BED. VSS. PT ON SIMPLE MASK AT 8L. CALL LIGHT WITHIN REACH AND BEDALARM ACTIVE.
--- NOTE | 2022-06-30 15:35 | NUR ---
REPORT GIVEN TO HERACLIO PLUMMER. ALL QUESITONS ANSWERED.
--- NOTE | 2022-06-30 16:22 | NUR ---
Pt transfered by bed to 359. Pt oriented to room and call light given. Pt instructed to call with needs. Rafaela PLUMMER met bedside.
--- NOTE | 2022-06-30 17:35 | NUR ---
PATIENT TRANSFERED TO ROOM 358 FROM ICU ACCOMPANIED BY AUTO HEATER MECHANIC. PATIENT IS ALERT AND ORIENTED X4. LUNGS DIMINISHED THROUGHOUT AND COARSE IN THE BASES. BOOT IN PLACE TO LEFT FOOT. MINIMAL NON-PRODUCTIVE COUGH NOTED. DENIES PAIN. ORIENTED TO ROOM AND CALL LIGHT. ON 6L O2 VIA HFNC.
[2022-07-01 00:55] VITALS: BP 118/60; PULSE 72; TEMP 99
[2022-07-01 07:36] VITALS: BP 105/57; PULSE 86; TEMP 97.5
[2022-07-01 07:55] LABS: MEAN CELL VOLUME 96 fl (80.0-100.0); MEAN CORPUSCULAR HGB CONC 33 g/dl (33.0-37.0); MEAN PLATELET VOLUME 11.8 fl (7.4-10.4); PLATELET COUNT 199 K/mm3 (130-400); RED BLOOD COUNT 2.82 M/mm3 (4.20-5.60); REDCELL DISTRIBUTION WIDTH-CV 16.7 % (11.5-14.5)
[2022-07-01 07:57] LABS: HEMOGLOBIN 8.8 g/dl (13.5-18.0); MEAN CORPUSCULAR HEMOGLOBIN 31 pg (27-31)
--- NOTE | 2022-07-01 08:53 | NUR ---
Melvin pal/ [facility] states that he is able to accept this patient once medically ready. Clinical updates sent to facility.
--- NOTE | 2022-07-01 10:19 | NUR ---
Patient denies complaints this am. PICC to VIPUL, dressing clean, dry and intact, blood return noted to both ports. Telemetry on. CAM boot noted to VIDYA HAYES WNL. MARY wrap noted underneath CAM boot. Foam dressing noted to coccyx area, this was removed, skin intact at this time. Oxygen on per NC. Call light within reach. FAll precautions in place.
[2022-07-01 11:47] VITALS: BP 105/47; PULSE 91; TEMP 97.5
[2022-07-01 16:12] VITALS: BP 118/54; PULSE 78; TEMP 97.5
[2022-07-01 18:26] LABS: HEMATOCRIT 27.7 % (42.0-52.0); HEMOGLOBIN 8.9 g/dl (13.5-18.0)
--- NOTE | 2022-07-01 18:30 | NUR ---
Line draw from PICC in [facility], good blood return noted. Patient denies complaints this evening. sitting up in bed, eating supper meal. Colostomy bag emptied. Call light within reach.
[2022-07-01 19:30] VITALS: BP 108/47; PULSE 87; TEMP 97.5
[2022-07-02 00:31] VITALS: BP 121/57; PULSE 75; TEMP 97.5
[2022-07-02 04:32] VITALS: BP 117/53; PULSE 66; TEMP 98.1
[2022-07-02 06:50] LABS: HEMATOCRIT 26.3 % (42.0-52.0); HEMOGLOBIN 8.3 g/dl (13.5-18.0); MEAN CELL VOLUME 98 fl (80.0-100.0); MEAN CORPUSCULAR HEMOGLOBIN 31 pg (27-31); MEAN CORPUSCULAR HGB CONC 32 g/dl (33.0-37.0); MEAN PLATELET VOLUME 11.8 fl (7.4-10.4); PLATELET COUNT 191 K/mm3 (130-400); RED BLOOD COUNT 2.68 M/mm3 (4.20-5.60); REDCELL DISTRIBUTION WIDTH-CV 16.6 % (11.5-14.5)
[2022-07-02 07:08] LABS: CREATININE, serum 0.87 mg/dL (0.72-1.25); POTASSIUM 4.7 mmol/L (3.5-4.5)
[2022-07-02 07:10] LABS: ANISOCYTOSIS 1+; BAND 20 % (0-10); LYMPHOCYTE 5 % (20.0-51.0); NEUTROPHILS 74 % (42.0-75.2); PLATELET ESTIMATE NORMAL (NORMAL); TEAR DROP CELLS 1+
[2022-07-02 07:23] VITALS: BP 97/58; PULSE 74; TEMP 98
[2022-07-02 11:16] VITALS: BP 115/61; PULSE 956; TEMP 98.1
--- NOTE | 2022-07-02 11:45 | NUR ---
[facility], as was the facility patient was previously at and had accepted him back confirms today, that they can accept patient upon discharge.
[2022-07-02] MEDS ORDERED: LIPITOR 40MG TA40 MG PO (15:32)
[2022-07-02] MEDS ORDERED: LOVENOX 4040 MG/0.4 SQ (15:32)
[2022-07-02 15:45] VITALS: BP 112/50; PULSE 84; TEMP 97.9
[2022-07-02 16:03] LABS: ANGIOTENSIN CONVERTING ENZYME 58 U/L (16 - 85)
--- NOTE | 2022-07-02 16:32 | NUR ---
Clinical updates faxed to Dasha at [facility]
[2022-07-02 20:53] VITALS: BP 98/64; PULSE 88; TEMP 98.7
[2022-07-03] VITALS (42 sets, daily range): BP systolic 107–118; BP diastolic 56–68; PULSE 76–96; TEMP 97.6–99; O2SAT 82–99
--- NOTE | 2022-07-03 01:34 | NUR ---
PICC LINE- attempted to administer IV antibiotic per red port, unable to flush, no blood return, med given per purple port. order placed for cathflo, powerhouse mechanic supervisor notified.
--- NOTE | 2022-07-03 04:08 | NUR ---
CATHFLO-instilled 2.2ml of cathflo into red port @0255, attempted aspiration @ 0325, no blood return, @ 0400 aspirated 5ml of blood, discarded, flushed with 20 ml NS, cap changed.
[2022-07-03 07:03] LABS: MEAN CELL VOLUME 96 fl (80.0-100.0); MEAN CORPUSCULAR HGB CONC 32 g/dl (33.0-37.0); MEAN PLATELET VOLUME 11.3 fl (7.4-10.4); PLATELET COUNT 186 K/mm3 (130-400); RED BLOOD COUNT 2.64 M/mm3 (4.20-5.60); REDCELL DISTRIBUTION WIDTH-CV 16.6 % (11.5-14.5)
[2022-07-03 07:05] LABS: HEMATOCRIT 25.3 % (42.0-52.0); HEMOGLOBIN 8.1 g/dl (13.5-18.0); MEAN CORPUSCULAR HEMOGLOBIN 31 pg (27-31)
[2022-07-03 07:24] LABS: CREATININE, serum 0.81 mg/dL (0.72-1.25); POTASSIUM 4.4 mmol/L (3.5-4.5)
[2022-07-03 07:38] LABS: ANISOCYTOSIS 1+; BAND 8 % (0-10); METAMYELOCYTE 1 % (0-0); NEUTROPHILS 87 % (42.0-75.2); PLATELET ESTIMATE NORMAL (NORMAL)
--- NOTE | 2022-07-03 09:00 | NUR ---
Nursing aid called the nurse to assess O2 sats in the 70's. Patient sleepings, easily awakened with verbal command. No signs of distress or complaints of SOB. Denies pain and discomfort. 7L NC O2, RT at the bedside to assess. Doctor aware and assessing. Will continue to monitor. Call light within reach. Bed alarm on
--- NOTE | 2022-07-03 09:35 | NUR ---
JE attended clinical rounding. Patient's oxygen needs increased to 7L overnight. Phone call made to D[facility] for updates and clinicals faxed. JE talked with the patients daughter Gautam to provide update and spoke with Belgica about the idea of [facility]. Belgica verbalizes her agreement with this plan, but would like to talk with . Patient verbalizes his agreement with [facility]. Phone call made to [facility] and clinical information faxed to [facility].
[2022-07-03 11:57] LABS: PARTIAL THROMBOPLASTIN TIME 30.8 SECONDS (26.0-37.0)
[2022-07-03 17:10] LABS: C-ANCA 1 U/mL (0-99)
--- NOTE | 2022-07-03 18:43 | NUR ---
PT TRANSFERRED FROM MEDICAL FLOOR TO [place] [id number]. PT IS CURRENTLY ON 10 L VIA HIGH FLOW NASAL CANNULA. VITALS STABLE ON 10L OF O2. PT DENIES PAIN AT THE MOMENT. PT COLOSTOMY BAG EMPTIED. PT CALL LIGHT WITHIN REACH. NO FURTHER NEEDS AT THE MOMENT.
--- NOTE | 2022-07-03 22:42 | NUR ---
Patient assessed around 2100. Alert and oriented x 4, and able to make needs known. Denies having pain and discomfort. PICC to RUE. Heparin drip had been on hold due to high levels. After reviewing chart, call placed to Dr. Calderon to see if he wanted patient to continue to with Heparin drip, as CT of chest was negative for PE. Order received to D/C Heparin drip and resume previous order for Lovenox SQ. Oders updated. Patient currently denying having shortness of breath. LS CTA in upper lobes, diminished in lower. On oxygen at 8 L/min via NC. HRR. Telemetry in place. BS active. Colostomy in place. Has been using urinal. Cam boot to left ankle. Voices no questions, needs, or concerns at this time. In bed with call light within reach.
[2022-07-04] VITALS (7 sets, daily range): BP systolic 108–128; BP diastolic 55–75; PULSE 60–103; TEMP 97.5–98.3
--- NOTE | 2022-07-04 06:20 | NUR ---
Patient had been on oxygen at 8 L/min via NC at beginning of shift. RT did decrease rate to 6 L/min via NC, as oxygen levels were 96-99%. When patient seemed to be in a deep sleep, patient seemed to be mouth breathing. Oxygen levels decreased to 87-89%. Offered oxymask, but patient declined, stating that he has tried it before and he did not like it. Oxygen increased back to 8 L/min via NC. Oxygen levels continued to decrease to 87-89% on the 8 L, so increased to 10 L. RT aware. Patient denies having any shortness of breath. Afebrile this shift. Voices no questions, needs, or concerns at this time. In bed with call light within reach.
[2022-07-04 06:33] LABS: MEAN CELL VOLUME 100 fl (80.0-100.0); MEAN CORPUSCULAR HGB CONC 31 g/dl (33.0-37.0); MEAN PLATELET VOLUME 11.6 fl (7.4-10.4); PLATELET COUNT 173 K/mm3 (130-400); RED BLOOD COUNT 2.63 M/mm3 (4.20-5.60); REDCELL DISTRIBUTION WIDTH-CV 17.1 % (11.5-14.5)
[2022-07-04 06:40] LABS: HEMATOCRIT 26.2 % (42.0-52.0); MEAN CORPUSCULAR HEMOGLOBIN 30 pg (27-31)
--- NOTE | 2022-07-04 06:45 | NUR ---
REPORT RCVD FROM KAVITHA WHARTON. THE PATIENT IS LAYING IN BED REQUESTING TO USE THE URINAL. PT'S O2 MONITOR DOES CONTINUE TO ALARM THE PATIENT IS NOT BREATHING WELL THROUGH HIS NOSE. WHEN ASKED TO TAKE LONG BREATHS IN THROUGH THE NOSE HIS SPO2 IMMEDIATELY JUMPS INTO THE HIGH 90'S. PER REPORT, THE PATIENT IS UNWILLING TO WEAR AN OXYMASK. THE PATIENT DENIES ANY PAIN AT THIS TIME. NO OTHER CONCERNS. WILL CONTINUE TO MONITOR.
[2022-07-04 06:52] LABS: CALCIUM 9.4 mg/dL (8.4-10.2); CREATININE, serum 0.8 mg/dL (0.72-1.25); POTASSIUM 4.5 mmol/L (3.5-4.5)
[2022-07-04 08:18] LABS: BAND 5 % (0-10); LYMPHOCYTE 4 % (20.0-51.0); METAMYELOCYTE 1 % (0-0); NEUTROPHILS 87 % (42.0-75.2)
[2022-07-04 08:19] LABS: ANISOCYTOSIS 1+
[2022-07-04 08:20] LABS: PLATELET ESTIMATE NORMAL (NORMAL)
--- NOTE | 2022-07-04 09:06 | NUR ---
CONTINUED TO CHECK ON THE SPO2 OF THE PATIENT. LONG THE PT'S PLETH HAS GOOD WAVEFORM, THE PT'S O2 REMAINS AT 93-95%. TITRATED O2 DOWN TO 8L VIA HFNC. THE PATIENT DOES NOT HAVE A DIFFICULT TIME BREATHING, AND DENIES ANY CHEST PAIN. WILL CONTINUE TO MONITOR.
--- NOTE | 2022-07-04 12:22 | NUR ---
THE PATIENT HAS MAINTAINED O2 SATURATIONS OF 93-95% ON 7-8L HFNC. ORDERS HAVE BEEN GIVEN TO TRANSFER THE PATIENT TO THE MEDICAL FLOOR AT THIS TIME.
--- NOTE | 2022-07-04 12:45 | NUR ---
REPORT GIVEN TO KAVITHA SCHULTZ. PT WILL BE TRANSFERRED TO MEDICAL UNIT, ROOM 314.
--- NOTE | 2022-07-04 21:54 | NUR ---
Patient assessed around 2024. Alert and oriented, and able to make needs known. Denies having pain and discomfort. PICC to RUE. Denies SOB and dyspnea at rest. Currently on oxygen at 4 L/min via NC. CPAP is not here yet. Spoke with RT and asked if she wanted to increase oxygen at night. RT checked SPO2 at this time, and reported he was at 91% on 4 L. Did not want to increase oxygen at this time. Asked patient who stated family will bring CPAP in tomorrow. LS CTA in upper lobes, diminished in lower. HRR. Telemetry in place. BSAx4. Colostomy in place, no leaking. Voices no questions, needs, or concerns at this time. In bed with call light within reach. High fall risk precautions in place. Bed alarm on.
[2022-07-05 03:57] VITALS: BP 113/55; PULSE 77; TEMP 98.7
--- NOTE | 2022-07-05 06:12 | NUR ---
Patient continues on oxygen at 4 L/min via NC. Voices no questions, needs, or concerns at this time. In bed with call light within reach. High fall risk precautions in place. Bed alarm on.
[2022-07-05 07:31] LABS: CALCIUM 8.8 mg/dL (8.4-10.2); CREATININE, serum 0.77 mg/dL (0.72-1.25); MEAN CELL VOLUME 98 fl (80.0-100.0); MEAN CORPUSCULAR HGB CONC 31 g/dl (33.0-37.0); MEAN PLATELET VOLUME 11.3 fl (7.4-10.4); PLATELET COUNT 173 K/mm3 (130-400); POTASSIUM 4.3 mmol/L (3.5-4.5); REDCELL DISTRIBUTION WIDTH-CV 17.2 % (11.5-14.5)
[2022-07-05 07:34] LABS: HEMATOCRIT 26.5 % (42.0-52.0); HEMOGLOBIN 8.3 g/dl (13.5-18.0); MEAN CORPUSCULAR HEMOGLOBIN 31 pg (27-31)
[2022-07-05 08:00] VITALS: BP 117/66; PULSE 87; TEMP 98
[2022-07-05 08:42] LABS: ANISOCYTOSIS 1+; LYMPHOCYTE 4 % (20.0-51.0); METAMYELOCYTE 4 % (0-0); NEUTROPHILS 88 % (42.0-75.2); NUCLEATED RED BLOOD CELL 1 (0-6); PLATELET ESTIMATE NORMAL (NORMAL)
[2022-07-05 09:43] VITALS: BP 119/63; PULSE 133
[2022-07-05 11:21] VITALS: BP 105/72; PULSE 113; TEMP 98.8
[2022-07-05 15:54] VITALS: BP 109/59; PULSE 106; TEMP 99.3
[2022-07-05 20:00] VITALS: BP 123/53; PULSE 87; TEMP 98
[2022-07-06] VITALS (8 sets, daily range): BP systolic 95–117; BP diastolic 37–63; PULSE 73–129; TEMP 97.4–98.2
[2022-07-06 06:41] LABS: MEAN CELL VOLUME 96 fl (80.0-100.0); MEAN CORPUSCULAR HGB CONC 33 g/dl (33.0-37.0); MEAN PLATELET VOLUME 12.1 fl (7.4-10.4); PLATELET COUNT 174 K/mm3 (130-400); RED BLOOD COUNT 2.87 M/mm3 (4.20-5.60); REDCELL DISTRIBUTION WIDTH-CV 17.9 % (11.5-14.5)
[2022-07-06 06:48] LABS: HEMATOCRIT 27.6 % (42.0-52.0); MEAN CORPUSCULAR HEMOGLOBIN 31 pg (27-31)
[2022-07-06 06:59] LABS: CALCIUM 9.3 mg/dL (8.4-10.2); CREATININE, serum 0.77 mg/dL (0.72-1.25); POTASSIUM 4.1 mmol/L (3.5-4.5)
--- NOTE | 2022-07-06 08:27 | NUR ---
SHIFT ASSESSMENT COMPLETED AND MORNING MEDICATIONS ADMINISTERED PER ORDER. PATIENT IS ALERT AND ORIENTED X4. DENIES PAIN. LUNGS WITH FINE CRACKLES TO THE BASES BILATERALLY. NO EDEMA NOTED. BOOT IN PLACE TO LEFT FOOT. BOTTOM WITH BLANCHABLE REDNESS. COUGH NOTED, NON-PRODUCTIVE AT THIS TIME. VOIDS IN URINAL. ON OW AT 7.5L HFNC. DENIES NEEDS AT THIS TIME.
[2022-07-06 09:01] LABS: ANISOCYTOSIS 1+; BAND 6 % (0-10); LYMPHOCYTE 6 % (20.0-51.0); METAMYELOCYTE 3 % (0-0); NEUTROPHILS 80 % (42.0-75.2); OVALOCYTES 1+; PLATELET ESTIMATE NORMAL (NORMAL); TEAR DROP CELLS 1+
--- NOTE | 2022-07-06 10:54 | NUR ---
Joel, at [facility], states that they do not have a bed available today for the patient. He states that he has been in contact with the patient's daughter and they are in agreement with the patient transferring there. SW contacted the patient's daughter, Belgica, to update. Belgica confirms she is agreeable with the patient going to [facility].
--- NOTE | 2022-07-06 10:56 | NUR ---
PATIENT TACHYCARDIC IN THE 150S WITH ACTIVITY, DU MELTON UPDATED DURING ROUNDS. PATIENT ASYMPTOMATIC.
--- NOTE | 2022-07-06 11:23 | NUR ---
PATIENT WITH MANUAL BLOOD PRESSURE OF 90/37 AND HR OF 130. PATIENT IS ASYMPTOMATIC, STATES "I FEEL GREAT." DU MELTON UPDATED. NEW ORDER RECIEVED FOR EKG. FLAT EXAMINER NOTIFIED.
--- NOTE | 2022-07-06 18:26 | NUR ---
PATIENT UP IN BED AT THIS TIME. ON IV FLUIDS, TOLERATING WELL. CONTINUES ON 7.5L HFNC. DENIES ANY PAIN. DENIES FURTHER NEEDS. CALL LIGHT WITHIN REACH.
[2022-07-07 03:45] VITALS: BP 103/59; PULSE 90; TEMP 97.3
[2022-07-07 06:11] LABS: MEAN CELL VOLUME 97 fl (80.0-100.0); MEAN CORPUSCULAR HGB CONC 31 g/dl (33.0-37.0); MEAN PLATELET VOLUME 12.3 fl (7.4-10.4); PLATELET COUNT 166 K/mm3 (130-400); RED BLOOD COUNT 2.81 M/mm3 (4.20-5.60)
[2022-07-07 06:32] LABS: HEMATOCRIT 27.2 % (42.0-52.0); HEMOGLOBIN 8.5 g/dl (13.5-18.0); MEAN CORPUSCULAR HEMOGLOBIN 30 pg (27-31)
[2022-07-07 07:44] VITALS: BP 104/53; PULSE 101; TEMP 97.8
--- NOTE | 2022-07-07 09:45 | NUR ---
SHIFT ASSESSMENT COMPLETED AND MORNING MEDICATIONS ADMINISTERED PER ORDER. PATIENT IS ALERT AND ORIENTED X4, SLEEPY BUT AROUSABLE. DENIES PAIN. LUNGS DIMINISHED WITH CRACKLES TO THE BASES BILATERALLY. NO EDEMA NOTED. BOOT TO LEFT LOWER LEG IN PLACE, CAPILARY REFILL LESS THAN 3 SECONDS ON LEFT FOOT, SKIN COLOR NORMAL FOR PATIENT. SLIGHT COUGH NOTED WITH CLEAR TO WHITE SPUTUM. DENIES ANY NEEDS. PATIENT ENCOURAGED TO EAT BREAKFAST THIS MORNING. DENIES FURTHER NEEDS. CALL LIGHT IN PLACE.
--- NOTE | 2022-07-07 11:00 | NUR ---
Joel, at [facility], notified JE that they do not have a bed available yet. JE faxed updates to Joel at [facility]. JE attempted to contact and update the patient's daughter, Belgica. JE left her a voicemail.
[2022-07-07 12:08] VITALS: BP 97/51; PULSE 114; TEMP 98
--- NOTE | 2022-07-07 12:29 | NUR ---
PATIENT WITH O2 SATURATION OF 84% ON 8L VIA HFNC. PATIENT BOOSTED IN BED, HOB ELEVATED, O2 INCREASED TO 9L HFNC, AND PATIENT ENCOURAGED TO DEEP BREATHE. O2 SATURATION NOW 92%. DR. ALLEN, HOSPITALIST, UPDATED.
[2022-07-07 15:10] VITALS: BP 116/61; PULSE 110; TEMP 97.9
--- NOTE | 2022-07-07 18:11 | NUR ---
PATIENT UP IN BED AT THIS TIME. DENIES PAIN. PO INTAKE ENCOURAGED. VISITED WITH FAMILY TODAY. DENIES NEEDS. REPOSITIONED FREQUENTLY. CALL LIGHT WITHIN REACH.
[2022-07-07 20:59] VITALS: BP 113/58; PULSE 87; TEMP 97.7
[2022-07-07 23:26] VITALS: BP 99/58; PULSE 89; TEMP 98
[2022-07-08] VITALS (7 sets, daily range): BP systolic 86–122; BP diastolic 40–94; PULSE 93–130; TEMP 97.3–100.3
--- NOTE | 2022-07-08 07:50 | NUR ---
Patient laying in bed shivering. Nurse assessed oral temp 97.3, nurse provided a warm blanket. A&Ox4. VSS 8L HF NC O2, HR tachy. IV CDI. Denies pain and discomfort. Ostomy intact. Call light within reach
--- NOTE | 2022-07-08 12:58 | NUR ---
Per [facility], they do not have a bed open at this time to accept this patient.
[2022-07-09 04:08] VITALS: BP 116/54; PULSE 91; TEMP 97.6
--- NOTE | 2022-07-09 05:35 | NUR ---
Remains on HFNC, 4-7L this shift, small amt of gas and stool from colostomy this shift, voiding using urinal. left leg in cam boot. no c/o pain or discomfort.
[2022-07-09 08:15] VITALS: BP 99/49; PULSE 114; TEMP 97.5
--- NOTE | 2022-07-09 10:00 | NUR ---
Assessment complete. Sitting up in bed eating breakfast. Reports SOA at rest. Respitory Therapy increase high flow nasal cannula to 15L due to SpO2 dropping into the 80% range bring it up to 100%.
--- NOTE | 2022-07-09 12:19 | NUR ---
Respiratory therapy decreased O2 to 10L/High Flow NC with SpO2 still in 90% range. Will continue to monitor. IS ordered and R.T. will educate with their next visit.
[2022-07-09 12:30] VITALS: BP 114/57; PULSE 123; TEMP 97.5
--- NOTE | 2022-07-09 14:52 | NUR ---
Per [facility], they do not have a bed today. This patient is the next the next patient to get a bed.
[2022-07-09 16:00] VITALS: BP 115/61; PULSE 126; TEMP 98.9
--- NOTE | 2022-07-09 16:16 | NUR ---
Jory notified by Joel at [facility] that they are able to accept this patient for Tuesday 07/10 and would like for me to arrange a 0900 supervisor opening and picking time. Clinical updates faxed to Joel. [facility] contacted and arranged for 0900 transfer. Phone call made to the patients daughter Belgica to provide update who verbalizes her agreement with the plan. SW met with patient to update. Patient verbalizes his agreement with the plan. Patient presented with the MCR.IM form. Education provided. Patient provides verbal consent per his request. Original placed in the patients chart and copy provided to the patient. Discharge plan: [facility]- [facility] @ 0900 on 07/10
--- NOTE | 2022-07-09 19:08 | NUR ---
Pt refused offer to get to chair for meals today. Pt denies pain or needs at this time.
[2022-07-09 19:56] VITALS: BP 106/50; PULSE 117; TEMP 97.6
--- NOTE | 2022-07-09 20:30 | NUR ---
Pt in bed. A&O x3. Pt requests his mouth wash med reporting feeling a lot of discomfort in his mouth. Shift assessment completed. Redness on saccrum noticed. Dressing placed on saccrum. On O2 at 8L per NC. VIPUL PICC line is CDI. LLE has gaymar boot in place. Cone pad placed for bladder incontinence. 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 Pt got repositioned and no other needs or concerns were reported at this time. Call light is within reach.
[2022-07-10 00:05] VITALS: BP 115/63; PULSE 89; TEMP 98.3
[2022-07-10 04:26] VITALS: BP 105/61; PULSE 86; TEMP 98.3
--- NOTE | 2022-07-10 05:26 | NUR ---
morning labs obtained from [facility] line
[2022-07-10 06:39] LABS: MEAN CELL VOLUME 96 fl (80.0-100.0); MEAN CORPUSCULAR HGB CONC 31 g/dl (33.0-37.0); MEAN PLATELET VOLUME 12.4 fl (7.4-10.4); PLATELET COUNT 175 K/mm3 (130-400); RED BLOOD COUNT 2.74 M/mm3 (4.20-5.60); REDCELL DISTRIBUTION WIDTH-CV 18.2 % (11.5-14.5)
[2022-07-10 06:49] LABS: HEMATOCRIT 26.4 % (42.0-52.0); HEMOGLOBIN 8.3 g/dl (13.5-18.0); MEAN CORPUSCULAR HEMOGLOBIN 30 pg (27-31)
[2022-07-10 06:55] LABS: CALCIUM 9.5 mg/dL (8.4-10.2); CREATININE, serum 0.78 mg/dL (0.72-1.25); POTASSIUM 4.2 mmol/L (3.5-4.5)
[2022-07-10 07:20] LABS: ANISOCYTOSIS 2+; BAND 4 % (0-10); EOSINOPHIL 1 % (0-4); LYMPHOCYTE 4 % (20.0-51.0); METAMYELOCYTE 2 % (0-0); NEUTROPHILS 82 % (42.0-75.2); PLATELET ESTIMATE NORMAL (NORMAL)
--- NOTE | 2022-07-10 07:28 | NUR ---
Assessment complete. A/O x4. O2 8L/high flow NC. See flowsheet VS. Denies pain. Scrotum and glenn area excoriated. 3 step moisture barrier care in place. Cone absorbant pad place under scrotal area as well to keep area dry. Plan to discharge to [facility] today at 0900.
[2022-07-10 08:00] VITALS: BP 110/51; PULSE 96; TEMP 97.8
[2022-07-10] MEDS ORDERED: LOVENOX 4040 MG/0.4 SQ (08:14)
[2022-07-10] MEDS ORDERED: PREDNISONE10 MG PO (08:28)
--- NOTE | 2022-07-10 08:54 | NUR ---
The patient is to discharge today, 07/10, to [facility] in [place]. Transportation was scheduled at 0900, via [facility]. SW confirmed the transport time with the patient's daughter and RN. JE met with the patient and presented him with the EMS Consent Forms. The patient verbalized understanding and signed the forms. No additional needs at this time.
--- NOTE | 2022-07-10 09:43 | NUR ---
Pt transferred to [facility] via EMS at 0925. PICC line to VIPUL left intact. O2 8L/high flow NC. All personal items sent with patient including colostomy supplies, ipad, cell phone with the chargers. Report called to Lisa at [facility].
== END 2022-07-10 09:25 | DRG 853 ==
LOC: COL.ER 10:50 → MEDICAL 13:42 → ICU 06-29 18:04 → MEDICAL 06-30 16:21 → IMCU 07-03 18:20 → MEDICAL 07-04 13:19
PROVIDERS: Hospitalist; Internal Medicine; Internal Medicine Pulmonary Disease; Nurse Practitioner; Physician Assistant; Student in an Organized Health Care Education/Training Program; ADMIT Internal Medicine
PROC: 4B02XSZ Measurement of Cardiac Pacemaker, External Approach (ICD-10-PCS; principal; 2022-06-06)
PROC: 0QSK04Z Reposition Left Fibula with Internal Fixation Device, Open Approach (ICD-10-PCS; 2022-06-09)
PROC: 02HV33Z Insertion of Infusion Device into Superior Vena Cava, Percutaneous Approach (ICD-10-PCS; 2022-06-11)
DX: A41.9 Sepsis, unspecified organism (principal); D61.810 Antineoplastic chemotherapy induced pancytopenia; J18.9 Pneumonia, unspecified organism; J96.01 Acute respiratory failure with hypoxia; U07.1 COVID-19; I50.30 Unspecified diastolic (congestive) heart failure; D84.9 Immunodeficiency, unspecified; C95.90 Leukemia, unspecified not having achieved remission; I13.0 Hypertensive heart and chronic kidney disease with heart failure and stage 1 through stage 4 chronic kidney disease, or unspecified chronic kidney disease; E87.20 Acidosis, unspecified; E78.5 Hyperlipidemia, unspecified; D64.9 Anemia, unspecified; N40.0 Benign prostatic hyperplasia without lower urinary tract symptoms; J32.4 Chronic pansinusitis; F32.A Depression, unspecified; D69.6 Thrombocytopenia, unspecified; S82.402A Unspecified fracture of shaft of left fibula, initial encounter for closed fracture; N18.2 Chronic kidney disease, stage 2 (mild); E04.1 Nontoxic single thyroid nodule; I95.9 Hypotension, unspecified; E16.2 Hypoglycemia, unspecified; E87.6 Hypokalemia; E83.42 Hypomagnesemia; Z95.0 Presence of cardiac pacemaker; Z86.16 Personal history of COVID-19; Z90.49 Acquired absence of other specified parts of digestive tract; Z79.82 Long term (current) use of aspirin; Z79.899 Other long term (current) drug therapy; Z79.01 Long term (current) use of anticoagulants; T45.1X5A Adverse effect of antineoplastic and immunosuppressive drugs, initial encounter
CPT/HCPCS: A9284; C1713; C1751; C1892; G0378; J0696; J1644; J1650; J2185; J2370; J2543; J2920; J2997; J3370; J3475; J3480; J7030; J7040; J7050; J7512; P9047; Q9967